=== PATIENT | male | born 1985 | race Hispanic/Latino ===

== ENCOUNTER → 2019-11-26 13:12 | Outpatient (CLI) | payer MEDICARE, OTHER, SELFPAY | PROVIDERS: Family Provider Family Medicine; Visit Provider Physician Assistant | DX: L03.012 Cellulitis of left finger (principal) | CPT/HCPCS: 87070; 87075; 87205 ==

== ENCOUNTER → 2020-03-30 08:57 | Outpatient (CLI) | payer MEDICARE, OTHER, SELFPAY ==
[2020-03-30 09:23] LABS: Bacteria Urine None Seen
[2020-03-30 10:57] LABS: Add Manual Diff / Slide Review NO; Basophils Absolute Auto 200 /uL (0-100); Basophils Percent Auto 2.6 % (0-2); Eosinophils Absolute Auto 200 /uL (0-450); Eosinophils Percent Auto 2.5 % (2-4); Hematocrit 32.1 % (41-53); Lymphocytes Absolute Auto 600 /uL (1100-4500); Lymphocytes Percent Auto 9.6 % (25-40); Mean Corpuscular HGB Conc 34.2 % (30-36); Mean Corpuscular Hemoglobin 32.5 PG (26-34); Monocytes Absolute Auto 700 /uL (0-900); Neutrophils Absolute Auto 4800 /uL (1500-7000); Neutrophils Percent Auto 74.3 % (50-75); Platelet Count 299 X10^3/uL (150-400); Red Blood Cell Count 3.38 X10^6/uL (4.5-5.9); Red Cell Distribution Width 16.7 % (11.6-14.8); White Blood Cell Count 6.4 X10^3/uL (4.5-11.0)
[2020-03-30 11:14] LABS: Appearance Urine UA CLEAR; Bilirubin Urine UA NEGATIVE (NEGATIVE); Color Urine UA YELLOW; Glucose Urine UA NEGATIVE (Negative); Ketones Urine UA NEGATIVE (NEGATIVE); Leukocyte Esterase Urine UA NEGATIVE (NEGATIVE); Nitrite Urine UA NEGATIVE (Negative); Occult Blood Urine UA TRACE-LYSED (Negative); Protein Urine UA TRACE (Negative); Specific Gravity Urine UA >=1.030 (1.000-1.035); Urobilinogen Urine UA 0.2 E.U./dL (0.2)
[2020-03-30 11:16] LABS: Amorphous Sediment Urine 2+; Culture Indicated Urine Specimen Cultured; RBC Urine 1-5/HPF (0-5/HPF); WBC Urine 5-10/HPF (0-5/HPF)
[2020-03-30 11:22] LABS: Alanine Aminotransferase 37 IU/L (<50); Albumin 4.5 g/dL (3.5-5.0); Albumin Globulin Ratio 1.5 (1.0-2.8); Alkaline Phosphatase 118 U/L (38-126); Aspartate Aminotransferase 28 IU/L (17-59); BUN Creatinine Ratio 14.5 (6-22); Bilirubin Total 0.7 mg/dL (0.2-1.3); Blood Urea Nitrogen 31 mg/dL (9-20); Calcium 11.7 mg/dL (8.4-10.2); Carbon Dioxide 25 mmol/L (22-32); Chloride 102 mmol/L (98-107); Estimated Glomerular Filt Rate 35.6 mL/min (>60); Globulin 3.1 g/dL (1.7-4.1); Glucose 113 mg/dL (70-100); HEMOLYSIS < 15 (0-50); Magnesium 1.6 mg/dL (1.6-2.3); Phosphorous 3.3 mg/dL (2.5-4.5); Sodium 135 mmol/L (137-145); Total Protein 7.6 g/dL (6.3-8.2)
[2020-03-30 14:29] LABS: Creatinine Urine Random 120.9 mg/dL; Protein (Total) Urine Random 28 mg/dL (0-12); Protein Creatinine Ratio Urine 0.23 GRAM/24H
[2020-03-31 09:40] LABS: Tacrolimus 9.7 ng/mL (2.0-20.0)
== END ==
PROVIDERS: Referring Provider Internal Medicine; Visit Provider Internal Medicine
DX: Z94.0 Kidney transplant status (principal); Z48.298 Encounter for aftercare following other organ transplant; T86.90 Unspecified complication of unspecified transplanted organ and tissue; E83.40 Disorders of magnesium metabolism, unspecified
CPT/HCPCS: 36415; 80053; 80197; 81001; 82570; 83735; 84100; 84156; 85025; 87086

== ENCOUNTER → 2022-11-07 10:39 | Outpatient (CLI) | payer OTHER, SELFPAY ==
[2022-11-07 11:11] LABS: Add Manual Diff / Slide Review NO; Basophils Absolute Auto 0 /uL (0-100); Basophils Percent Auto 0.6 % (0-2); Eosinophils Absolute Auto 100 /uL (0-450); Hematocrit 47.8 % (41-53); Hemoglobin 16.7 g/dL (13.5-17.5); Lymphocytes Absolute Auto 1500 /uL (1100-4500); Lymphocytes Percent Auto 18.8 % (25-40); Mean Corpuscular HGB Conc 34.8 % (30-36); Mean Corpuscular Hemoglobin 30.5 PG (26-34); Mean Corpuscular Volume 87.6 fL (80-100); Monocytes Absolute Auto 400 /uL (0-900); Monocytes Percent Auto 4.9 % (3-14); Neutrophils Absolute Auto 6100 /uL (1500-7000); Neutrophils Percent Auto 74.7 % (50-75); Platelet Count 273 X10^3/uL (150-400); Red Blood Cell Count 5.46 X10^6/uL (4.5-5.9); Red Cell Distribution Width 12.5 % (11.6-14.8); White Blood Cell Count 8.1 X10^3/uL (4.5-11.0)
[2022-11-07 11:34] LABS: Alanine Aminotransferase 57 IU/L (<50); Albumin 4.5 g/dL (3.5-5.0); Albumin Globulin Ratio 1.5 (1.0-2.8); Alkaline Phosphatase 121 U/L (38-126); Aspartate Aminotransferase 35 IU/L (17-59); BUN Creatinine Ratio 13.8 (6-22); Bilirubin Total 1.4 mg/dL (0.2-1.3); Blood Urea Nitrogen 15 mg/dL (9-20); Calcium 10.7 mg/dL (8.4-10.2); Carbon Dioxide 29 mmol/L (22-32); Chloride 101 mmol/L (98-107); Cholesterol 263 mg/dL (140-199); Estimated Glomerular Filt Rate > 60 mL/min (>60); Globulin 3.1 g/dL (1.7-4.1); Glucose 185 mg/dL (70-100); HDL Cholesterol 38 mg/dL (40-60); HEMOLYSIS < 15 (0-50); Potassium 4.8 mmol/L (3.4-5.1); Sodium 137 mmol/L (137-145); Total Protein 7.6 g/dL (6.3-8.2)
[2022-11-07 11:41] LABS: Triglycerides 665 mg/dL (35-150)
[2022-11-07 12:50] LABS: Creatinine Urine Random 85.4 mg/dL
[2022-11-07 12:55] LABS: Microalbumi Creatinin Ratio Ur 17.5 ug/mg CR (<30); Microalbumin Urine Random 1.5 mg/dL (0-1.6)
== END ==
PROVIDERS: Family Provider Family Medicine; PCP Family Medicine; Referring Provider Family Medicine; Visit Provider Family Medicine
DX: E78.5 Hyperlipidemia, unspecified (principal); D22.9 Melanocytic nevi, unspecified; I10 Essential (primary) hypertension; Z94.0 Kidney transplant status
CPT/HCPCS: 36415; 80053; 80061; 82043; 82570; 85025

== ENCOUNTER → 2023-09-04 09:34 | Outpatient (CLI) | payer OTHER, SELFPAY ==
[2023-09-04 11:22] LABS: Hemoglobin A1C% w Est Avg Glu 13.6 % (4.0-6.0)
[2023-09-04 11:34] LABS: Alanine Aminotransferase 41 IU/L (<50); Albumin 4.5 g/dL (3.5-5.0); Albumin Globulin Ratio 1.7 (1.0-2.8); Alkaline Phosphatase 161 U/L (38-126); Aspartate Aminotransferase 30 IU/L (17-59); BUN Creatinine Ratio 19.2 (6-22); Bilirubin Total 1.4 mg/dL (0.2-1.3); Blood Urea Nitrogen 20 mg/dL (9-20); Calcium 10.4 mg/dL (8.4-10.2); Carbon Dioxide 26 mmol/L (22-32); Chloride 102 mmol/L (98-107); Cholesterol 205 mg/dL (140-199); Estimated Glomerular Filt Rate > 60 mL/min (>60); Globulin 2.6 g/dL (1.7-4.1); Glucose 444 mg/dL (70-100); HDL Cholesterol 29 mg/dL (40-60); Potassium 4.7 mmol/L (3.4-5.1); Sodium 135 mmol/L (137-145); Total Protein 7.1 g/dL (6.3-8.2); Uric Acid 7.6 mg/dL (3.5-8.5)
[2023-09-04 11:42] LABS: HEMOLYSIS 16 (0-50)
[2023-09-04 11:43] LABS: Triglycerides 1362 mg/dL (35-150)
== END ==
PROVIDERS: Family Provider Family Medicine; PCP Family Medicine; Referring Provider Family Medicine; Visit Provider Family Medicine
DX: M10.9 Gout, unspecified (principal); E78.5 Hyperlipidemia, unspecified; I10 Essential (primary) hypertension; E83.52 Hypercalcemia; E11.9 Type 2 diabetes mellitus without complications
CPT/HCPCS: 36415; 80053; 80061; 83036; 84550

== ENCOUNTER → 2023-09-18 09:29 | Outpatient (CLI) | payer OTHER, SELFPAY ==
[2023-09-18 10:22] LABS: Add Manual Diff / Slide Review NO; Basophils Absolute Auto 100 /uL (0-100); Basophils Percent Auto 1.2 % (0-2); Eosinophils Absolute Auto 100 /uL (0-450); Eosinophils Percent Auto 2.3 % (2-4); Hematocrit 46.1 % (41-53); Hemoglobin 15.8 g/dL (13.5-17.5); Lymphocytes Absolute Auto 1500 /uL (1100-4500); Lymphocytes Percent Auto 28.3 % (25-40); Mean Corpuscular HGB Conc 34.3 % (30-36); Mean Corpuscular Hemoglobin 30.2 PG (26-34); Mean Corpuscular Volume 88.2 fL (80-100); Monocytes Absolute Auto 500 /uL (0-900); Monocytes Percent Auto 8.9 % (3-14); Neutrophils Absolute Auto 3200 /uL (1500-7000); Neutrophils Percent Auto 59.3 % (50-75); Platelet Count 240 X10^3/uL (150-400); Red Blood Cell Count 5.23 X10^6/uL (4.5-5.9); Red Cell Distribution Width 13.2 % (11.6-14.8); White Blood Cell Count 5.4 X10^3/uL (4.5-11.0)
[2023-09-18 10:25] LABS: Appearance Urine UA CLEAR; Bilirubin Urine UA NEGATIVE (NEGATIVE); Color Urine UA YELLOW; Glucose Urine UA 3+ g/dL (Negative); Ketones Urine UA TRACE (NEGATIVE); Leukocyte Esterase Urine UA NEGATIVE (NEGATIVE); Nitrite Urine UA NEGATIVE (Negative); Occult Blood Urine UA NEGATIVE (Negative); Protein Urine UA NEGATIVE (Negative); Urobilinogen Urine UA 0.2 E.U./dL (0.2); pH Urine UA 5.5 (4.5-8.0)
[2023-09-18 10:31] LABS: Urine Volume 10mL (spun)
[2023-09-18 10:32] LABS: Bacteria Urine None Seen; Culture Indicated Urine Cult Not Indicated; RBC Urine None Seen (0-5/HPF); Squamous Epithelial Cell Urine None Seen (0-5/HPF); WBC Urine None Seen (0-5/HPF)
[2023-09-18 14:49] LABS: Hemoglobin A1C% w Est Avg Glu 12.3 % (4.0-6.0)
[2023-09-18 15:51] LABS: Alanine Aminotransferase 40 IU/L (<50); Albumin 4.4 g/dL (3.5-5.0); Albumin Globulin Ratio 1.6 (1.0-2.8); Alkaline Phosphatase 103 U/L (38-126); Aspartate Aminotransferase 31 IU/L (17-59); BUN Creatinine Ratio 18.8 (6-22); Bilirubin Total 1.6 mg/dL (0.2-1.3); Blood Urea Nitrogen 21 mg/dL (9-20); Calcium 10.2 mg/dL (8.4-10.2); Carbon Dioxide 28 mmol/L (22-32); Chloride 103 mmol/L (98-107); Estimated Glomerular Filt Rate > 60 mL/min (>60); Globulin 2.7 g/dL (1.7-4.1); Glucose 233 mg/dL (70-100); HEMOLYSIS < 15 (0-50); Sodium 137 mmol/L (137-145); Total Protein 7.1 g/dL (6.3-8.2)
[2023-09-18 15:51] LABS: Magnesium 2.1 mg/dL (1.6-2.3); Phosphorous 3.2 mg/dL (2.5-4.5)
[2023-09-18 16:05] LABS: Potassium 5.4 mmol/L (3.4-5.1)
[2023-09-18 16:15] LABS: TSH w/ Reflex to FT4 0.37 uIU/mL (0.47-4.68)
[2023-09-18 16:36] LABS: Creatinine Urine Random 52.11 mg/dL; Protein (Total) Urine Random 13 mg/dL (0-12); Protein Creatinine Ratio Urine 0.24 GRAM/24H
[2023-09-18 17:50] LABS: Free T4, Direct Thyroxine 1.03 ng/dL (0.78-2.19)
[2023-09-19 11:43] LABS: Tacrolimus 3.8 ng/mL (2.0-20.0)
[2023-09-20 16:44] LABS: CMV DNA, Quant Real Time PCR Negative (Negative)
[2023-09-24 12:36] LABS: Epstein-Barr DNA Quant, PCR Negative (Negative)
== END ==
PROVIDERS: Internal Medicine; Family Provider Family Medicine; PCP Family Medicine; Referring Provider Family Medicine; Visit Provider Family Medicine
DX: E11.9 Type 2 diabetes mellitus without complications (principal)
CPT/HCPCS: 36415; 80053; 80197; 81001; 82570; 83036; 83735; 84100; 84156; 84439; 84443; 85025; 87497; 87798

== ENCOUNTER → 2023-10-16 11:00 | Outpatient (CLI) | payer OTHER, SELFPAY ==
--- NOTE | 2023-10-29 11:26 | DIAB.INIT ---
Initial Diabetes Education Assessment Name: Tyler Lofton Date: 10/16/23 Time: 1105a-12p Dx: Type II Diabetes Provider: Marvin Tyler presents for initial Dm visit. Recent DM diagnosis with significant immediate FH of T2 and T1 DM. Also, PMH of kidney transplant in 2019 with chronic prednisone tx. States he has had prediabetes for some time, but just recently diagnosed with Dm. Interested in CGM. Has private insurance. If not covered can try FSL coupon. Reports prior to diagnosis had symptoms of fatigue, vision changes. Today we placed a sample CGM for him to try. Diet Recall: 10a: apple and beef jerky OR eggs, villanueva +/- pancake 4-8p: burger, wings, veggies OR steak, wings, veggies (often eating out) OR homemade porridge with chicken or pina stew water 1.5 gallon per day, coffee with splash sweet creamer Travelling for work more. Irregular work schedule impacts meal timing. No pizza due to GI upset/heartburn. Avoiding pasta, rice, potatoes, and bread at this time. Anthropometrics: Ht: 66 Wt: 201# Physical Activity: More recently started daily body resistance exercises. Enjoys walks and cycling. Self-Monitoring Blood Glucose: None recently, report infrequent. Diabetes Medications: 25mg Jardiance 1000mg Metformin BID 2.5 glipizide 15mg pioglitizone Pertinent Labs: HgA1c: 13.3% 09/04/23 12.3% 09/18/23 Past Medical History: (Last Reviewed 09/18/23 @ 11:46 by Jean Marvin DO) Anemia [id number] Atypical nevi Cystinuria Gout History of hemodialysis History of kidney disease Hypercalcemia Hyperlipidemia Hypertension Kidney failure [id number] Kidney stones [id number] Type 2 diabetes mellitus Intervention: This participant was very receptive. Provided appropriate educational handouts. Discussed the following topics: Completed intake assessment. Discussed barriers to care. Pathophysiology of type 2 diabetes HgA1c, its correlation to blood glucose numbers, and rationale for goal Importance of self-monitoring, how often, and when to check. Suggested checking at different times to evaluate meals. Reviewed role of CGM and potential coupons to make affordable. Impact of eating out on overall health and BG Reviewed CGM use and equipment Discussed when to check blood sugars using finger stick Reviewed high and low blood sugar signs/symptoms and treatment options Provided education for self-administration of CGM placement Educated patient on alarm settings Discussed when to replace equipment and disposal Created SMART goals for patient self-care and success. Goals: Wear FSL3 x 14 days (provided coupon info) Message RD about if you want to move forward with rx Follow-up: KRISTINA VALERA follow-up in 2-3 weeks Daphne Huang RDN, SOTO Certified Diabetes Care and Drawing Checker P: [phone] Thank you for this referral
== END ==
PROVIDERS: Family Provider Family Medicine; PCP Family Medicine; Referring Provider Family Medicine
DX: E11.9 Type 2 diabetes mellitus without complications (principal); Z79.84 Long term (current) use of oral hypoglycemic drugs; Z71.3 Dietary counseling and surveillance
CPT/HCPCS: G0108

== ENCOUNTER → 2023-11-13 10:23 | Outpatient (CLI) | payer OTHER, SELFPAY ==
[2023-11-13 11:26] LABS: Creatinine Urine Random 75.62 mg/dL
[2023-11-13 11:28] LABS: Hemoglobin A1C% w Est Avg Glu 7.4 % (4.0-6.0)
[2023-11-13 11:31] LABS: Microalbumin Urine Random 2.7 mg/dL (0-1.6)
[2023-11-13 21:00] LABS: Alanine Aminotransferase 36 IU/L (<50); Albumin 4.8 g/dL (3.5-5.0); Albumin Globulin Ratio 1.5 (1.0-2.8); Alkaline Phosphatase 74 U/L (38-126); Aspartate Aminotransferase 32 IU/L (17-59); BUN Creatinine Ratio 16.7 (6-22); Bilirubin Total 1.3 mg/dL (0.2-1.3); Blood Urea Nitrogen 21 mg/dL (9-20); Calcium 11.2 mg/dL (8.4-10.2); Carbon Dioxide 25 mmol/L (22-32); Chloride 107 mmol/L (98-107); Estimated Glomerular Filt Rate > 60 mL/min (>60); Globulin 3.3 g/dL (1.7-4.1); Glucose 106 mg/dL (70-100); HEMOLYSIS 16 (0-50); Sodium 140 mmol/L (137-145); Total Protein 8.1 g/dL (6.3-8.2)
[2023-11-13 21:03] LABS: Potassium 5.4 mmol/L (3.4-5.1)
== END ==
PROVIDERS: Family Provider Family Medicine; PCP Family Medicine; Referring Provider Family Medicine; Visit Provider Family Medicine
DX: E11.9 Type 2 diabetes mellitus without complications (principal); I10 Essential (primary) hypertension; E83.52 Hypercalcemia; M10.9 Gout, unspecified
CPT/HCPCS: 36415; 80053; 82043; 82570; 83036

== ENCOUNTER → 2024-01-08 09:44 | Outpatient (CLI) | payer OTHER, SELFPAY ==
[2024-01-08 10:37] LABS: Alanine Aminotransferase 30 IU/L (<50); Albumin 4.6 g/dL (3.5-5.0); Albumin Globulin Ratio 1.6 (1.0-2.8); Alkaline Phosphatase 69 U/L (38-126); Aspartate Aminotransferase 34 IU/L (17-59); BUN Creatinine Ratio 18.3 (6-22); Bilirubin Total 1.8 mg/dL (0.2-1.3); Blood Urea Nitrogen 23 mg/dL (9-20); Calcium 11.2 mg/dL (8.4-10.2); Carbon Dioxide 26 mmol/L (22-32); Chloride 102 mmol/L (98-107); Cholesterol 175 mg/dL (140-199); Estimated Glomerular Filt Rate > 60 mL/min (>60); Globulin 2.9 g/dL (1.7-4.1); Glucose 114 mg/dL (70-100); HDL Cholesterol 44 mg/dL (40-60); HEMOLYSIS 17 (0-50); LDL Cholesterol Calculated 86 mg/dL (<100); Potassium 5.1 mmol/L (3.4-5.1); Sodium 136 mmol/L (137-145); Total Protein 7.5 g/dL (6.3-8.2); Triglycerides 226 mg/dL (35-150)
[2024-01-08 11:03] LABS: Hemoglobin A1C% w Est Avg Glu 5.9 % (4.0-6.0)
[2024-01-10 06:12] LABS: Calcium 10.9 mg/dL (8.7-10.2); Parathyroid Hormone, Intact 46 pg/mL (15-65)
== END ==
PROVIDERS: Family Provider Family Medicine; PCP Family Medicine; Referring Provider Family Medicine; Visit Provider Family Medicine
DX: E11.22 Type 2 diabetes mellitus with diabetic chronic kidney disease (principal); I10 Essential (primary) hypertension; E78.00 Pure hypercholesterolemia, unspecified; E83.52 Hypercalcemia
CPT/HCPCS: 36415; 80053; 80061; 82310; 83036; 83970

== ENCOUNTER → 2024-04-09 09:00 | Outpatient (CLI) | payer OTHER, SELFPAY ==
[2024-04-09 10:27] LABS: Alanine Aminotransferase 29 IU/L (<50); Albumin 4.3 g/dL (3.5-5.0); Albumin Globulin Ratio 1.4 (1.0-2.8); Alkaline Phosphatase 72 U/L (38-126); Aspartate Aminotransferase 28 IU/L (17-59); Blood Urea Nitrogen 25 mg/dL (9-20); Calcium 10.6 mg/dL (8.4-10.2); Carbon Dioxide 26 mmol/L (22-32); Chloride 103 mmol/L (98-107); Cholesterol 256 mg/dL (140-199); Estimated Glomerular Filt Rate > 60 mL/min (>60); Glucose 138 mg/dL (70-100); HDL Cholesterol 45 mg/dL (40-60); HEMOLYSIS < 15 (0-50); LDL Cholesterol Calculated 162 mg/dL (<100); Potassium 4.9 mmol/L (3.4-5.1); Sodium 133 mmol/L (137-145); Total Protein 7.3 g/dL (6.3-8.2); Triglycerides 247 mg/dL (35-150); Uric Acid 8.1 mg/dL (3.5-8.5)
[2024-04-09 10:30] LABS: Hemoglobin A1C% w Est Avg Glu 5.7 % (4.0-6.0)
[2024-04-09 11:41] LABS: Creatinine Urine Random 79.63 mg/dL
[2024-04-09 11:49] LABS: Microalbumin Urine Random < 0.6 mg/dL (0-1.6)
== END ==
PROVIDERS: Family Provider Family Medicine; PCP Family Medicine; Referring Provider Family Medicine; Visit Provider Family Medicine
DX: E11.9 Type 2 diabetes mellitus without complications (principal); M10.9 Gout, unspecified; I10 Essential (primary) hypertension; E83.52 Hypercalcemia; E78.5 Hyperlipidemia, unspecified
CPT/HCPCS: 36415; 80053; 80061; 82043; 82570; 83036; 84550

== ENCOUNTER → 2024-07-22 08:08 | Outpatient (CLI) | payer OTHER, SELFPAY ==
[2024-07-22 08:44] LABS: Hemoglobin A1C% w Est Avg Glu 5.5 % (4.0-6.0)
[2024-07-22 08:57] LABS: Alanine Aminotransferase 27 IU/L (<50); Albumin 4.8 g/dL (3.5-5.0); Albumin Globulin Ratio 1.7 (1.0-2.8); Alkaline Phosphatase 84 U/L (38-126); Aspartate Aminotransferase 29 IU/L (17-59); BUN Creatinine Ratio 21.5 (6-22); Bilirubin Total 1.3 mg/dL (0.2-1.3); Blood Urea Nitrogen 34 mg/dL (9-20); Calcium 10.8 mg/dL (8.4-10.2); Carbon Dioxide 23 mmol/L (22-32); Chloride 100 mmol/L (98-107); Cholesterol 297 mg/dL (140-199); Estimated Glomerular Filt Rate 57 mL/min (>60); Globulin 2.9 g/dL (1.7-4.1); Glucose 146 mg/dL (70-100); HDL Cholesterol 35 mg/dL (40-60); HEMOLYSIS < 15 (0-50); Sodium 133 mmol/L (137-145); Total Protein 7.7 g/dL (6.3-8.2); Uric Acid 8.5 mg/dL (3.5-8.5)
[2024-07-22 08:58] LABS: Potassium 5.5 mmol/L (3.4-5.1)
[2024-07-22 09:04] LABS: Triglycerides 791 mg/dL (35-150)
== END ==
PROVIDERS: Family Provider Family Medicine; PCP Family Medicine; Referring Provider Family Medicine; Visit Provider Family Medicine
DX: E11.9 Type 2 diabetes mellitus without complications (principal); M10.9 Gout, unspecified; I10 Essential (primary) hypertension; E78.5 Hyperlipidemia, unspecified
CPT/HCPCS: 36415; 80053; 80061; 83036; 84550

== ENCOUNTER 2024-12-09 09:09 | Inpatient (IN) | payer MEDICARE, OTHER, SELFPAY ==
[2024-12-09] VITALS (33 sets, daily range): BP systolic 93–131; BP diastolic 54–71; PULSE 50–86; RESP 12–29; TEMP 35.4–36.6; O2SAT 94–100; BMI 33.0; BMI 33.7
--- NOTE | 2024-12-09 09:31 | DI.RAD.S_ITS ---
PROCEDURE: XR CHEST 1V INDICATIONS: Chest Pain TECHNIQUE: One view of the chest was acquired. COMPARISON: None. FINDINGS: Surgical changes and devices: None. Lungs and pleura: Lungs are clear. No pleural effusions or pneumothorax. Mediastinum: Mediastinal contours appear normal. Heart size is normal. Bones and chest wall: No suspicious bony lesions. Overlying soft tissues appear unremarkable. IMPRESSION: No acute cardiopulmonary abnormality is seen. Dictated by: Antonino Delgado M.D. on 12/09/2024 at 9:53 Approved by: Antonino Delgado M.D. on 12/09/2024 at 9:53
--- NOTE | 2024-12-09 09:31 | EKG_ITS ---
[address] [address] Test Date: 2024-12-09 Pat Name: Tyler Lofton Department: Room: Gender: Male Harp Regulator: MARLEN : 1985 Requested By: Order Number: [id number] Reading MD: Dwight Swain Measurements Intervals Malin Rate: 77 P: 31 [place]: 202 QRS: 38 QRSD: 108 T: 41 QT: 408 QTc: 461 Interpretive Statements Normal sinus rhythm Electronically Signed On 12-10-2024 9:45:25 PDT by Dwight Swain
[2024-12-09 09:46] LABS: Appearance Urine UA CLEAR; Bilirubin Urine UA NEGATIVE (NEGATIVE); Color Urine UA YELLOW; Glucose Urine UA 3+ g/dL (Negative); Ketones Urine UA NEGATIVE (NEGATIVE); Leukocyte Esterase Urine UA NEGATIVE (NEGATIVE); Nitrite Urine UA NEGATIVE (Negative); Occult Blood Urine UA 3+ (Negative); Protein Urine UA 2+ (Negative); Specific Gravity Urine UA <=1.005 (1.000-1.035); Urobilinogen Urine UA 0.2 E.U./dL (0.2); pH Urine UA 5.5 (4.5-8.0)
[2024-12-09 09:50] LABS: Culture Indicated Urine Cult Not Indicated
[2024-12-09 09:58] LABS: Add Manual Diff / Slide Review NO; Hematocrit 44.8 % (41-53); Hemoglobin 15.6 g/dL (13.5-17.5); Lymphocytes Absolute Auto 1000 /uL (1100-4500); Mean Corpuscular HGB Conc 34.9 % (30-36); Mean Corpuscular Hemoglobin 29.9 PG (26-34); Mean Corpuscular Volume 85.7 fL (80-100); Platelet Count 197 X10^3/uL (150-400)
--- NOTE | 2024-12-09 09:58 | ED_ITS ---
HPI - Weakness General Chief complaint: Weakness Stated complaint: Nauseous, Kidney Issues after Transplant Time Seen by Provider: 12/09/24 09:21 Source: patient Mode of arrival: Ambulatory Limitations: language barrier History of Present Illness HPI Narrative: 39-year-old renal transplant patient with a history of hypertension type 2 diabetes gout dyslipidemia presented 2 weeks of general malaise weakness thought he had COVID with a negative home COVID test then started to develop symptoms of hematuria dysuria abdominal cramping seen at urgent care started on Bactrim but continues to be symptomatic at this time. Patient denies fever chills body aches but it is nauseous but no vomiting diarrhea, back pain penile discharge or testicular pain. Other than what is stated 14 point review of system is negative. Related Data Home Medications ?Medication ?Instructions ?Recorded ?Confirmed magnesium supplement PO 07/01/22 07/22/24 multivitamin 1 tab PO DAILY 07/01/2207/03 mycophenolate sodium 360 mg tab PO 07/01/22 07/22/24 tablet,delayed release prednisone 5 mg tablet 5 mg PO DAILY 07/01/2207/22 tacrolimus 0.5 mg capsule, 0.5 mg PO 07/01/22 07/22/24 immediate-release tacrolimus 1 mg capsule, 1 mg PO BID 01/08/24 5 immediate-release Previous Rx's ?Medication ?Instructions ?Recorded lancets 33 gauge #100 ea 09/18/23 blood-glucose sensor (FreeStyle #2 ea 11/02/23 Yuniel 3 Sensor device) flash glucose scanning reader #1 ea 11/02/23 (FreeStyle Yuniel 2 [place]) atorvastatin 10 mg tablet 10 mg PO DAILY #90 tabs 07/03 05/28 empagliflozin 10 mg tablet 10 mg PO DAILY #90 tabs lisinopril 10 mg tablet 10 mg PO DAILY #90 tabs 07/03 05/28 pioglitazone 15 mg tablet 15 mg PO DAILY #90 tabs 09/02 11/25 metformin 500 mg tablet 1,000 mg (2 x 500 mg) PO BID #180 11/21/24 tabs Allergies Allergy/AdvReac Type Severity Reaction Status Date / Time No Known Drug Allergies Allergy Verified 12/09/24 09:24 Review of Systems Review of Systems ROS Unobtainable: All systems reviewed & are unremarkable except as noted in HPI and below Patient History Medical History Type 2 diabetes mellitus Hypercalcemia Anemia Kidney stones Kidney failure History of kidney disease History of hemodialysis Atypical nevi Hyperlipidemia Hypertension Gout Cystinuria Surgical History Anesthesia H/O nephrolithotomy with removal of calculi Renal transplant recipient (~03/10/20) Family History Father Diabetes mellitus Hyperlipidemia Mental health problem Mother Diabetes mellitus Hypertension Mental health problem Brother Diabetes mellitus Hypertension Hyperlipidemia Mental health problem Sister Diabetes mellitus Hyperlipidemia Mental health problem Sister Hypertension Mental health problem Social History (System 11/19/22 @ 11:08 by Tati Brennan) Smoking Status: Never smoker Smoking Status: Never smoker Exam Narrative Exam Narrative: GENERAL: [39] year old patient appears stated age. Well-developed patient, in mild distress. HEAD: Atraumatic. Normocephalic. EYES: Pupils equal round and reactive. Extraocular motions intact. No scleral icterus. No injection or drainage. ENT: Nose without bleeding, purulent drainage. Throat without erythema, tonsillar hypertrophy or exudate. Airway patent. NECK: Trachea midline. Non tender CARDIOVASCULAR: Regular rate and rhythm without murmurs, gallops, or rubs. RESPIRATORY: Clear to auscultation. Breath sounds equal bilaterally. No wheezes, rales, or rhonchi. GASTROINTESTINAL: Abdomen soft, non-tender, nondistended. EXTREMITIES: No edema or joint tenderness. BACK: Nontender without deformity or crepitance. No flank tenderness. NEURO: AOx3. SKIN: No rash or erythema of visible areas Initial Vital Signs Initial Vital Signs: Vital Signs Temperature 97.8 F 12/09/24 09:24 Pulse Rate 86 12/09/24 09:24 Respiratory Rate 16 12/09/24 09:24 Blood Pressure 101/61 12/09/24 09:24 Pulse Oximetry 98 12/09/24 09:24 Oxygen Delivery Method Room Air 12/09/24 09:24 Course Orders Ordered: ED Orders 12/09/24 08:25 Urinalysis and Microscopic Stat 12/09/24 09:31 XR chest 1V Stat EKG-12 Lead Stat 12/09/24 09:45 Complete Blood Count AUTO DIFF Stat Comprehensive Metabolic Panel Stat Covid-19 + FLU A/B + RSV - PCR Stat Lactate (Lactic Acid) Stat Lipase Stat Magnesium Stat NT-proBNP (BNP-Adult 18+) Stat PTT Partial Thromboplastin Min Stat Prothrombin Time INR Stat Troponin & CK Cardiac Panel Stat 12/09/24 10:10 Blood Culture Stat Lactated Ringer's (Lactated Ringers) 1,000 mls @ 1,000 mls/hr IV BOLUS ONE Stop: 12/09/24 11:03 Last Admin: 12/09/24 10:12 Dose: 1,000 mls/hr Documented By: GUILLERMO Discontinued Medications Ondansetron HCl (Ondansetron 4 Mg/2 Ml Inj) 4 mg IV NOW ONE Stop: 12/09/24 10:05 Last Admin: 12/09/24 10:13 Dose: 4 mg Documented By: GUILLERMO Vital Signs Vital signs: Vital Signs - 8 hr 12/09/24 09:24 Temperature 97.8 F Pulse Rate 86 Respiratory Rate 16 Blood Pressure 101/61 Pulse Oximetry 98 Oxygen Delivery Method Room Air MDM - Weakness Lab Data 12/09/24 09:45 12/09/24 09:45 Labs: Lab Results 12/09/24 12/09/24 Range/Units 08:25 09:45 WBC 4.9 (4.5-11.0) X10^3/uL RBC 5.22 (4.5-5.9) X10^6/uL Hgb 15.6 (13.5-17.5) g/dL Hct 44.8 (41-53) % MCV 85.7 (80-100) fL MCH 29.9 (26-34) PG MCHC 34.9 (30-36) % RDW 13.0 (11.6-14.8) % Plt Count 197 (150-400) X10^3/uL Neut % (Auto) 67.8 (50-75) % Lymph % (Auto) 20.2 L (25-40) % Josephine % (Auto) 11.5 (3-14) % Eos % (Auto) 0.1 L (2-4) % Baso % (Auto) 0.4 (0-2) % Neut # (Auto) 3300 (5195-8201) /uL Lymph # (Auto) 1000 L (1716-6223) /uL Josephine # (Auto) 600 (0-900) /uL Eos # (Auto) 0 (0-450) /uL Baso # (Auto) 0 (0-100) /uL PT 11.3 (9.4-12.5) SECONDS INR 1.0 (0.9-1.3) APTT 31 (25.1-36.5) SECONDS Sodium 126 L (137-145) mmol/L Potassium 4.1 (3.4-5.1) mmol/L Chloride 93 L (98-107) mmol/L Carbon Dioxide 16 L (22-32) mmol/L BUN 49 H (9-20) mg/dL Creatinine 3.77 H (0.66-1.25) mg/dL Estimated GFR 20 L (>60) mL/min BUN/Creatinine Ratio 13.0 (6-22) Glucose 192 H (70-99) mg/dL Lactate 2.0 (0.7-2.1) mmol/L Calcium 9.3 (8.4-10.2) mg/dL Magnesium 2.6 H (1.6-2.3) mg/dL Total Bilirubin 0.9 (0.2-1.3) mg/dL AST 34 (17-59) IU/L ALT 36 (<50) IU/L Alkaline Phosphatase 81 (38-126) U/L Total Creatine Kinase 101 (55-170) U/L Troponin I < 0.012 (0.01-0.034) ng/mL NT-Pro-B Natriuret Pep < 20 (<125) pg/mL Total Protein 8.1 (6.3-8.2) g/dL Albumin 4.7 (3.5-5.0) g/dL Globulin 3.4 (1.7-4.1) g/dL Albumin/Globulin Ratio 1.4 (1.0-2.8) Lipase 69 (23-300) U/L Urine Color Yellow Urine Appearance Clear Urine pH 5.5 (4.5-8.0) Ur Specific [place] <=1.005 (1.000-1.035) Urine Protein 2+ H (Negative) Urine Glucose (UA) 3+ H (Negative) g/dL Urine Ketones Negative (NEGATIVE) Urine Occult Blood 3+ H (Negative) Urine Nitrate Negative (Negative) Urine Bilirubin Negative (NEGATIVE) Urine Urobilinogen 0.2 (0.2) E.U./dL Ur Leukocyte Esterase Negative (NEGATIVE) Urine RBC 10-30/hpf H (0-5/HPF) Urine WBC 0-1/hpf (0-5/HPF) Ur Squamous Epith Cells None seen (0-5/HPF) Urine Bacteria None seen (None) Ur Culture Indicated? Cult not indicated Vol Urine Centrifuged 10ml (spun) SARS-CoV-2 (PCR) Negative (Negative) Influenza A (RT-PCR) Flu a negative (NEGATIVE) Influenza B (RT-PCR) Flu b negative (NEGATIVE) RSV (PCR) Negative (Negative) Imaging Data Chest x-ray: Radiologist Impression: [place] [address] XRay Report Signed Patient: Tyler Lofton MR#: [id number] : 1985 Acct:[id number] Age/Sex: 39 / M Date of Service: 12/09/24 Loc: ED Accession Number: [id number] Procedure: XR chest 1V Ordering Provider: Aidan Shah D.O. PROCEDURE: XR CHEST 1V INDICATIONS: Chest Pain TECHNIQUE: One view of the chest was acquired. COMPARISON: None. FINDINGS: Surgical changes and devices: None. Lungs and pleura: Lungs are clear. No pleural effusions or pneumothorax. Mediastinum: Mediastinal contours appear normal. Heart size is normal. Bones and chest wall: No suspicious bony lesions. Overlying soft tissues appear unremarkable. IMPRESSION: No acute cardiopulmonary abnormality is seen. CT scan - abdomen/pelvis: Radiologist Impression: [place] [address] CT Scan Report Signed Patient: Tyler Lofton MR#: [id number] : 1985 Acct:[id number] Age/Sex: 39 / M Date of Service: 12/09/24 Loc: ED Accession Number: [id number] Procedure: CT kidney ureter bladder (KUB) Ordering Provider: Aidan Shah D.O. PROCEDURE: CT KIDNEY URETER BLADDER (KUB) INDICATIONS: kidney transplant TECHNIQUE: CT of the abdomen and pelvis was obtained without intravenous contrast. Coronal and sagittal reformats were performed. For radiation dose reduction, the following was used: automated exposure control, adjustment of mA and/or kV according to patient size. COMPARISON: None. FINDINGS: Image quality: Diagnostic. Lower Chest: No significant findings. ABDOMEN: Liver: No contour-deforming mass. Gallbladder: No radiopaque gallstones or wall thickening. Biliary ducts: No biliary dilation. Pancreas: No ductal dilation. Spleen: Size is within normal limits. Adrenal Glands: No adrenal nodules. Kidneys and Ureters: [place] kidneys are atrophic without hydronephrosis. Right lower quadrant kidney transplant demonstrates renal edema with moderate hydronephrosis, urothelial wall thickening. Stomach and Bowel: Normal colonic caliber, without significant wall thickening. Normal appendix. Peritoneum: No abnormal intraperitoneal fluid. No free air. Ventral Wall: No significant hernia. Abdominal Nodes: No retroperitoneal or mesenteric adenopathy by size criteria. Vessels: Aorta and inferior vena cava are normal in size. PELVIS: Pelvic Organs: Unremarkable. Bladder: Bladder wall thickening and perivesicular fat stranding. Pelvic Nodes: No enlarged lymph nodes. Miscellaneous: No inguinal hernias are seen. Bones: No aggressive osseous abnormality. IMPRESSION: Suspected ascending urinary tract infection, with bladder wall thickening, perivesicular fat stranding, right lower abdominal renal transplant edema and right-sided urothelial wall thickening. Pyelonephritis not excluded. MDM Narrative Medical decision making narrative: Vital signs, nurse triage note, medication list, previous ER visits, and all imaging studies reviewed. Patient given fluids, Rocephin 2g IV, along with blood cultures. CT abdomen and pelvis shows suspected ascending UTI with bladder wall thickening perivascular fat stranding right lower abdominal renal transplant edema right-sided urolithiasis wall thickening pyelonephritis not excluded. Patient given LR 2 L bolus for which patient has responded. BUN 44 creatinine 3.08 from 49 and 3.77. Case discussed with Dr. Swain who has graciously accepted the patient for inpatient admission. Discharge Plan Departure Patient Disposition: Admitted As Inpatient Clinical Impression: Acute pyelonephritis, YOHAN (acute kidney injury)
[2024-12-09 10:09] LABS: INR 1.0 (0.9-1.3); Prothrombin Time 11.3 SECONDS (9.4-12.5)
[2024-12-09 10:11] LABS: PTT Partial Thromboplastin Tim 31 SECONDS (25.1-36.5)
[2024-12-09] MEDS: LACTATED RINGERS 1,000 ML 1000 ML IV ×3 (10:12→16:51)
[2024-12-09] MEDS: ONDANSETRON 4 MG/2 ML INJ IV (10:13)
[2024-12-09 10:14] LABS: Alanine Aminotransferase 36 IU/L (<50); Albumin 4.7 g/dL (3.5-5.0); Albumin Globulin Ratio 1.4 (1.0-2.8); Alkaline Phosphatase 81 U/L (38-126); Blood Urea Nitrogen 49 mg/dL (9-20); Calcium 9.3 mg/dL (8.4-10.2); Carbon Dioxide 16 mmol/L (22-32); Chloride 93 mmol/L (98-107); Creatine Kinase 101 U/L (55-170); Estimated Glomerular Filt Rate 20 mL/min (>60); Globulin 3.4 g/dL (1.7-4.1); Glucose 192 mg/dL (70-99); HEMOLYSIS < 15 (0-50); Lipase 69 U/L (23-300); Magnesium 2.6 mg/dL (1.6-2.3); Potassium 4.1 mmol/L (3.4-5.1); Sodium 126 mmol/L (137-145); Total Protein 8.1 g/dL (6.3-8.2)
[2024-12-09 10:15] LABS: Lactate (Lactic Acid) 2.0 mmol/L (0.7-2.1)
[2024-12-09 10:26] LABS: NT-proBNP (BNP-Adult 18+) < 20 pg/mL (<125); Troponin I < 0.012 ng/mL (0.01-0.034)
[2024-12-09 10:33] LABS: Influenza A - CEPHEID Flu A NEGATIVE (NEGATIVE); Influenza B - CEPHEID Flu B NEGATIVE (NEGATIVE)
[2024-12-09 10:34] LABS: COVID-19 CEPHEID 4-PLEX PCR Negative (Negative)
--- NOTE | 2024-12-09 10:49 | DI.CT.S_ITS ---
PROCEDURE: CT KIDNEY URETER BLADDER (KUB) INDICATIONS: kidney transplant TECHNIQUE: CT of the abdomen and pelvis was obtained without intravenous contrast. Coronal and sagittal reformats were performed. For radiation dose reduction, the following was used: automated exposure control, adjustment of mA and/or kV according to patient size. COMPARISON: None. FINDINGS: Image quality: Diagnostic. Lower Chest: No significant findings. ABDOMEN: Liver: No contour-deforming mass. Gallbladder: No radiopaque gallstones or wall thickening. Biliary ducts: No biliary dilation. Pancreas: No ductal dilation. Spleen: Size is within normal limits. Adrenal Glands: No adrenal nodules. Kidneys and Ureters: [place] kidneys are atrophic without hydronephrosis. Right lower quadrant kidney transplant demonstrates renal edema with moderate hydronephrosis, urothelial wall thickening. Stomach and Bowel: Normal colonic caliber, without significant wall thickening. Normal appendix. Peritoneum: No abnormal intraperitoneal fluid. No free air. Ventral Wall: No significant hernia. Abdominal Nodes: No retroperitoneal or mesenteric adenopathy by size criteria. Vessels: Aorta and inferior vena cava are normal in size. PELVIS: Pelvic Organs: Unremarkable. Bladder: Bladder wall thickening and perivesicular fat stranding. Pelvic Nodes: No enlarged lymph nodes. Miscellaneous: No inguinal hernias are seen. Bones: No aggressive osseous abnormality. IMPRESSION: Suspected ascending urinary tract infection, with bladder wall thickening, perivesicular fat stranding, right lower abdominal renal transplant edema and right-sided urothelial wall thickening. Pyelonephritis not excluded. Dictated by: Antonino Delgado M.D. on 12/09/2024 at 11:11 Approved by: Antonino Delgado M.D. on 12/09/2024 at 11:14
[2024-12-09] MEDS: cefTRIAXone 2,000 MG in SODIUM CHLORIDE 0.9% 100 ML 200 MG IV (11:52)
[2024-12-09] MEDS: MORPHINE 4 MG/ML INJ IV (13:09)
--- NOTE | 2024-12-09 14:43 | PC.NURSE ---
PT REPORTS URINARY SYMPTOMS X1 WEEK. PT STATES HE TRIED TO SELF MEDICATE AT HOME WITH CRANBERRY EXTRACT AND DRINKING PLENTY OF FLUIDS. PT STATES HE WAS AROUND HIS NEICE WHO HAD A COLD. PT REPORTS HOME COVID TEST WAS NEGATIVE. PT REPORTS FEELING VERY FATIGUED. PT REPORTS HE IS STILL URINATING AND PUTTING OUT ADQUETE OUTPUT.
[2024-12-09 14:51] LABS: Blood Urea Nitrogen 44 mg/dL (9-20); Calcium 8.8 mg/dL (8.4-10.2); Carbon Dioxide 22 mmol/L (22-32); Chloride 96 mmol/L (98-107); Estimated Glomerular Filt Rate 26 mL/min (>60); Glucose 103 mg/dL (70-99); HEMOLYSIS < 15 (0-50); Potassium 4.2 mmol/L (3.4-5.1); Sodium 128 mmol/L (137-145)
[2024-12-09] MEDS: HYDROMORPHONE 1 MG INJ IV (16:50)
--- NOTE | 2024-12-09 17:20 | PM.HP.1 ---
History of Present Illness History of Present Illness Date Patient Seen: 12/09/24 Chief complaint: Nauseous, Kidney Issues after Transplant Narrative: Patient was a 31-year-old male with a renal transplant history as well as hypertension and diabetes. He presents with 2 weeks of progressive weakness. He had a negative COVID test. He then developed urinary symptoms including hematuria and dysuria. He was started on Bactrim at the urgent care and now presents with ongoing weakness, and chills. ED course: He was YOHAN with a creatinine of 3.77 and evidence of urine tract infection. After 2 L of IV fluid creatinine improved to 3.0. S: He notes he has been ill for about a week. He states his baseline creatinine is closer to 1.7. He has been having malaise and became quite volume depleted at home. His girlfriend brought him to the hospital after he spent the last 3-4 days at home getting more ill. He was had some bladder fullness and dysuria, no hematuria. No fevers or rigors. He does take prednisone 5 mg daily as part of his immunosuppression regimen as well as mycophenolate and tacrolimus. [facility] Medical History Type 2 diabetes mellitus Hypercalcemia Anemia Kidney stones Kidney failure History of kidney disease History of hemodialysis Atypical nevi Hyperlipidemia Hypertension Gout Cystinuria Surgical History Anesthesia H/O nephrolithotomy with removal of calculi Renal transplant recipient (~03/10/20) Family History Father Diabetes mellitus Hyperlipidemia Mental health problem Mother Diabetes mellitus Hypertension Mental health problem Brother Diabetes mellitus Hypertension Hyperlipidemia Mental health problem Sister Diabetes mellitus Hyperlipidemia Mental health problem Sister Hypertension Mental health problem Social History Smoking Status: Never smoker Meds Home Medications and Allergies Home Medications ?Medication ?Instructions ?Recorded ?Confirmed ?Type magnesium supplement PO 07/01/22 07/22/24 History multivitamin 1 tab PO DAILY 07/01/22 07/22/24 History mycophenolate sodium 360 mg tab PO 07/01/22 07/22/24 History tablet,delayed release prednisone 5 mg tablet 5 mg PO DAILY 07/01/22 07/22/24 History tacrolimus 0.5 mg capsule, 0.5 mg PO 07/01/22 07/22/24 History immediate-release lancets 33 gauge #100 ea 09/18/23 07/22/24 Rx blood-glucose sensor (FreeStyle #2 ea 11/02/23 07/22/24 Rx Yuniel 3 Sensor device) flash glucose scanning reader #1 ea 11/02/23 07/22/24 Rx (FreeStyle Yuniel 2 [place]) tacrolimus 1 mg capsule, 1 mg PO BID 01/08/24 07/22/24 History immediate-release atorvastatin 10 mg tablet 10 mg PO DAILY #90 tabs 07/22/24 07/22/24 Rx empagliflozin 10 mg tablet 10 mg PO DAILY #90 tabs 07/22/24 07/22/24 Rx lisinopril 10 mg tablet 10 mg PO DAILY #90 tabs 07/22/24 07/22/24 Rx pioglitazone 15 mg tablet 15 mg PO DAILY #90 tabs 09/27/24 Rx metformin 500 mg tablet 1,000 mg (2 x 500 mg) PO BID #180 11/21/24 Rx tabs Allergies Allergy/AdvReac Type Severity Reaction Status Date / Time No Known Drug Allergies Allergy Verified 12/09/24 09:24 Review of Systems Review of Systems Narrative: All else reviewed and otherwise unremarkable except as noted in the history and physical. Exam Vital Signs (past 8 hours): - 12/09/24 09:24 12/09/24 09:30 12/09/24 09:32 Temperature 97.8 F Pulse Rate 86 81 Respiratory Rate 16 Blood Pressure 101/61 103/62 Pulse Oximetry 98 99 Oxygen Delivery Method Room Air 12/09/24 09:32 12/09/24 10:02 12/09/24 10:30 Temperature Pulse Rate 79 77 68 Respiratory Rate 20 19 Blood Pressure Pulse Oximetry 98 Oxygen Delivery Method 12/09/24 11:09 12/09/24 11:30 12/09/24 12:00 Temperature Pulse Rate 73 70 70 Respiratory Rate 21 16 Blood Pressure Pulse Oximetry 99 Oxygen Delivery Method 12/09/24 12:03 12/09/24 12:03 12/09/24 12:30 Temperature Pulse Rate 67 70 Respiratory Rate 12 22 Blood Pressure 103/58 L Pulse Oximetry 99 98 Oxygen Delivery Method 12/09/24 12:30 12/09/24 13:00 12/09/24 13:00 Temperature Pulse Rate 64 Respiratory Rate 12 Blood Pressure 103/62 104/58 L Pulse Oximetry 99 Oxygen Delivery Method 12/09/24 13:10 12/09/24 13:10 12/09/24 13:30 Temperature Pulse Rate 67 71 Respiratory Rate 17 21 Blood Pressure 112/65 Pulse Oximetry 100 98 Oxygen Delivery Method 12/09/24 13:30 12/09/24 13:45 12/09/24 13:45 Temperature Pulse Rate 68 Respiratory Rate Blood Pressure 111/57 L 94/55 L Pulse Oximetry 97 Oxygen Delivery Method 12/09/24 14:00 12/09/24 14:00 12/09/24 14:15 Temperature Pulse Rate 65 67 Respiratory Rate 22 Blood Pressure 93/54 L Pulse Oximetry 95 96 Oxygen Delivery Method 12/09/24 14:15 12/09/24 14:30 12/09/24 14:30 Temperature Pulse Rate 70 Respiratory Rate 24 Blood Pressure 103/56 L 107/60 Pulse Oximetry 98 Oxygen Delivery Method Oxygen Delivery Method Room Air Narrative Exam Narrative: NAD, alert and oriented, fluent speech, calm. Normocephalic skull, EOMI, anicteric sclera, symmetric pupils. Oropharynx unremarkable, no droop. Neck supple, midline trachea, no adenopathy. Lungs clear, normal rate and effort. Heart regular, no murmur gallop or rub. Abdomen is soft, non distended and non tender. Extremities are free of edema. Skin is free of rash or lesions. Joints are not swollen or deformed. Judgment appears to be normal. Many tattoos No real right lower quadrant tenderness at the site of his renal transplant. Objective ECG Impression: Intervals [place] Rate: 77 P: 31 MA: 202 QRS: 38 QRSD: 108 T: 41 QT: 408 QTc: 461 Interpretive Statements Normal sinus rhythm Imaging CT scan - abdomen: Radiologist's impression: Suspected ascending urinary tract infection, with bladder wall thickening, perivesicular fat stranding, right lower abdominal renal transplant edema and right-sided urothelial wall thickening. Pyelonephritis not excluded. Chest x-ray: Radiologist's impression: No acute cardiopulmonary abnormality is seen. Labs 12/09/24 09:45 12/09/24 14:29 Labs: Laboratory Results - last 24 hr 12/09/24 12/09/24 12/09/24 08:25 09:45 14:29 WBC 4.9 RBC 5.22 Hgb 15.6 Hct 44.8 MCV 85.7 MCH 29.9 MCHC 34.9 RDW 13.0 Plt Count 197 Neut % (Auto) 67.8 Lymph % (Auto) 20.2 L [place] % (Auto) 11.5 Eos % (Auto) 0.1 L Baso % (Auto) 0.4 Neut # (Auto) 3300 Lymph # (Auto) 1000 L [place] # (Auto) 600 Eos # (Auto) 0 Baso # (Auto) 0 PT 11.3 INR 1.0 APTT 31 Sodium 126 L 128 L Potassium 4.1 4.2 Chloride 93 L 96 L Carbon Dioxide 16 L 22 BUN 49 H 44 H Creatinine 3.77 H 3.08 H Estimated GFR 20 L 26 L BUN/Creatinine Ratio 13.0 14.3 Glucose 192 H 103 H Lactate 2.0 Calcium 9.3 8.8 Magnesium 2.6 H Total Bilirubin 0.9 AST 34 ALT 36 Alkaline Phosphatase 81 Total Creatine Kinase 101 Troponin I < 0.012 NT-Pro-B Natriuret Pep < 20 Total Protein 8.1 Albumin 4.7 Globulin 3.4 Albumin/Globulin Ratio 1.4 Lipase 69 Urine Color Yellow Urine Appearance Clear Urine pH 5.5 Ur Specific [place] <=1.005 Urine Protein 2+ H Urine Glucose (UA) 3+ H Urine Ketones Negative Urine Occult Blood 3+ H Urine Nitrate Negative Urine Bilirubin Negative Urine Urobilinogen 0.2 Ur Leukocyte Esterase Negative Urine RBC 10-30/hpf H Urine WBC 0-1/hpf Ur Squamous Epith Cells None seen Urine Bacteria None seen Ur Culture Indicated? Cult not indicated Vol Urine Centrifuged 10ml (spun) SARS-CoV-2 (PCR) Negative Influenza A (RT-PCR) Flu a negative Influenza B (RT-PCR) Flu b negative RSV (PCR) Negative Assessment & Plan Assessment & Plan narrative: 1. Pyelonephritis, active. 2. Volume depletion, active. 3. Acute kidney injury, active. 4. DM 2, active. 5. Renal transplant status, active. PLAN: -IV fluids and monitor renal function. -antibiotics and blood cultures. -slide scale insulin. -hold DARIELA inhibitor -stress dose steroids for the next 12 hours given his chronic prednisone dosing -have pharmacy renally dose his mycophenolate and tacrolimus. Anticipate 2 midnights in the hospital, supports inpatient status. Full code. Time-Based Coding :: 35 min spent with patient and on the chart (including review of chart, obtaining history, exam, reviewing outside data, placing orders, documenting exam and treatment plan, and counseling patient) on 12/09. Quality MIPS - Admit I confirm the patient?s Advance Care Plan is present, Code status is documented, Surrogate decision maker is in patient?s record [If Yes, STOP here]: Yes MIPS - Meds 'Current medications' to include all prescriptions, [id number] products, herbals, cannabis/cannabidiol products, and vitamin/mineral/dietary (nutritional) supplements. I have utilized all available resources to obtain, update, or review the patient?s current medications. [If Yes, STOP here]: Yes
[2024-12-09] MEDS: SODIUM CHLORIDE 0.9% 1,000 ML 100 ML IV (18:13)
[2024-12-09] MEDS: HYDROCORTISONE 100 MG/2 ML VIAL IV (18:47)
[2024-12-09] MEDS: ACETAMINOPHEN 325 MG TABLET 650 MG PO (21:17)
[2024-12-10] MEDS: OXYCODONE IR 5 MG TABLET PO ×2 (00:20→05:12)
[2024-12-10] MEDS: SODIUM CHLORIDE 0.9% 1,000 ML 100 ML IV ×4 (01:03→21:42)
[2024-12-10] MEDS: HYDROCORTISONE 100 MG/2 ML VIAL IV (01:40)
--- NOTE | 2024-12-10 01:54 | PC.NURSE ---
Patient reported that he took home medications prior to having meds reconciled. Dr. Webb notified.
[2024-12-10] MEDS: CALCIUM CARBONATE 500 MG TAB 1000 MG PO (02:10)
[2024-12-10 03:00] VITALS: BP 115/69; PULSE 49; RESP 18; TEMP 35.6; O2SAT 100
[2024-12-10] MEDS: ACETAMINOPHEN 325 MG TABLET 650 MG PO ×3 (05:11→17:47)
[2024-12-10 05:35] LABS: Blood Urea Nitrogen 41 mg/dL (9-20); Calcium 9.2 mg/dL (8.4-10.2); Carbon Dioxide 23 mmol/L (22-32); Chloride 100 mmol/L (98-107); Estimated Glomerular Filt Rate 36 mL/min (>60); Glucose 166 mg/dL (70-99); HEMOLYSIS < 15 (0-50); Potassium 4.5 mmol/L (3.4-5.1); Sodium 132 mmol/L (137-145)
[2024-12-10 05:39] LABS: Add Manual Diff / Slide Review NO; Hematocrit 39.5 % (41-53); Hemoglobin 13.9 g/dL (13.5-17.5); Lymphocytes Absolute Auto 600 /uL (1100-4500); Mean Corpuscular HGB Conc 35.3 % (30-36); Mean Corpuscular Hemoglobin 29.8 PG (26-34); Mean Corpuscular Volume 84.6 fL (80-100); Platelet Count 183 X10^3/uL (150-400)
[2024-12-10 08:00] VITALS: BP 114/59; PULSE 46; RESP 16; TEMP 35.8; O2SAT 98
--- NOTE | 2024-12-10 08:00 | PM.PN.1 ---
Subjective Subjective Interval history: S: He was improving but still has a fair amount of suprapubic pain and dysuria. No nausea. Creatinine has improved to 2.3. Exam Vital Signs (past 8 hours): - 12/10/24 03:00 Temperature 96.1 F L Pulse Rate 49 L Respiratory Rate 18 Blood Pressure 115/69 Pulse Oximetry 100 Oxygen Flow Rate 0 Oxygen Delivery Method Room Air Oxygen Flow Rate 0 Narrative Exam Narrative: NAD, alert and oriented. Fluent speech. Lungs are clear, normal rate and effort. Heart is regular, no murmur gallop or rub. Abdomen is soft, non distended. Extremities are free of edema. Objective Labs 12/10/24 04:39 12/10/24 04:39 Labs: Laboratory Results - last 24 hr 12/09/24 12/09/24 12/09/24 08: 09:45 14:29 WBC 4.9 RBC 5.22 Hgb 15.6 Hct 44.8 MCV 85.7 MCH 29.9 MCHC 34.9 RDW 13.0 Plt Count 197 Neut % (Auto) 67.8 Lymph % (Auto) 20.2 L [place] % (Auto) 11.5 Eos % (Auto) 0.1 L Baso % (Auto) 0.4 Neut # (Auto) 3300 Lymph # (Auto) 1000 L [place] # (Auto) 600 Eos # (Auto) 0 Baso # (Auto) 0 PT 11.3 INR 1.0 APTT 31 Sodium 126 L 128 L Potassium 4.1 4.2 Chloride 93 L 96 L Carbon Dioxide 16 L 22 BUN 49 H 44 H Creatinine 3.77 H 3.08 H Estimated GFR 20 L 26 L BUN/Creatinine Ratio 13.0 14.3 Glucose 192 H 103 H POC Whole Bld Glucose Lactate 2.0 Calcium 9.3 8.8 Magnesium 2.6 H Total Bilirubin 0.9 AST 34 ALT 36 Alkaline Phosphatase 81 Total Creatine Kinase 101 Troponin I < 0.012 NT-Pro-B Natriuret Pep < 20 Total Protein 8.1 Albumin 4.7 Globulin 3.4 Albumin/Globulin Ratio 1.4 Lipase 69 Urine Color Yellow Urine Appearance Clear Urine pH 5.5 Ur Specific [place] <=1.005 Urine Protein 2+ H Urine Glucose (UA) 3+ H Urine Ketones Negative Urine Occult Blood 3+ H Urine Nitrate Negative Urine Bilirubin Negative Urine Urobilinogen 0.2 Ur Leukocyte Esterase Negative Urine RBC 10-30/hpf H Urine WBC 0-1/hpf Ur Squamous Epith Cells None seen Urine Bacteria None seen Ur Culture Indicated? Cult not indicated Vol Urine Centrifuged 10ml (spun) SARS-CoV-2 (PCR) Negative Influenza A (RT-PCR) Flu a negative Influenza B (RT-PCR) Flu b negative RSV (PCR) Negative 12/09/24 12/10/24 12/10/24 21:20 04:39 07:30 WBC 3.8 L RBC 4.67 Hgb 13.9 Hct 39.5 L MCV 84.6 MCH 29.8 MCHC 35.3 RDW 12.6 Plt Count 183 Neut % (Auto) 76.1 H Lymph % (Auto) 16.4 L [place] % (Auto) 7.3 Eos % (Auto) 0.0 L Baso % (Auto) 0.2 Neut # (Auto) 2900 Lymph # (Auto) 600 L [place] # (Auto) 300 Eos # (Auto) 0 Baso # (Auto) 0 PT INR APTT Sodium 132 L Potassium 4.5 Chloride 100 Carbon Dioxide 23 BUN 41 H Creatinine 2.30 H Estimated GFR 36 L BUN/Creatinine Ratio 17.8 Glucose 166 H POC Whole Bld Glucose 125 H 126 H Lactate Calcium 9.2 Magnesium Total Bilirubin AST ALT Alkaline Phosphatase Total Creatine Kinase Troponin I NT-Pro-B Natriuret Pep Total Protein Albumin Globulin Albumin/Globulin Ratio Lipase Urine Color Urine Appearance Urine pH Ur Specific [place] Urine Protein Urine Glucose (UA) Urine Ketones Urine Occult Blood Urine Nitrate Urine Bilirubin Urine Urobilinogen Ur Leukocyte Esterase Urine RBC Urine WBC Ur Squamous Epith Cells Urine Bacteria Ur Culture Indicated? Vol Urine Centrifuged SARS-CoV-2 (PCR) Influenza A (RT-PCR) Influenza B (RT-PCR) RSV (PCR) [facility] Medical History Type 2 diabetes mellitus Hypercalcemia Anemia Kidney stones Kidney failure History of kidney disease History of hemodialysis Atypical nevi Hyperlipidemia Hypertension Gout Cystinuria Surgical History Anesthesia H/O nephrolithotomy with removal of calculi Renal transplant recipient (~03/10/20) Family History Father Diabetes mellitus Hyperlipidemia Mental health problem Mother Diabetes mellitus Hypertension Mental health problem Brother Diabetes mellitus Hypertension Hyperlipidemia Mental health problem Sister Diabetes mellitus Hyperlipidemia Mental health problem Sister Hypertension Mental health problem Social History Smoking Status: Never smoker alcohol intake: never Assessment & Plan Assessment & Plan narrative: 1. Pyelonephritis, active. 2. Volume depletion, active. 3. Acute kidney injury, active and improving. 4. DM 2, active. 5. Renal transplant status, active. PLAN: -Continue IV fluids and monitor renal function. -antibiotics and blood cultures. Ceftriaxone. Obtain urine culture from urgent care. -slide scale insulin. -hold DARIELA inhibitor -stress dose steroids for the next 12 hours given his chronic prednisone dosing, we will transition back to prednisone 5 daily. -Continue mycophenolate and tacrolimus. CRICKET: 12/11. Anticipate 2 midnights in the hospital, supports inpatient status. Full code. Time-Based Coding :: [TOTAL MINUTES] spent with patient and on the chart (including review of chart, obtaining history, exam, reviewing outside data, placing orders, documenting exam and treatment plan, and counseling patient) on [DATE]. Quality VTE Deep Vein Thrombosis/Pulmonary Embolism Present on Admission: No
[2024-12-10] MEDS: ASPIRIN EC 81 MG TABLET PO (08:22)
[2024-12-10] MEDS: HEPARIN 5,000 UNIT/ML VIAL 5000 UNIT SUBCUT (08:22)
[2024-12-10] MEDS: TACROLIMUS 0.5 MG CAPSULE 2 MG PO (08:22)
[2024-12-10 08:34] VITALS: O2SAT 98
[2024-12-10] MEDS: [UNRECOGNIZED DRUG - REMARK] 1000 EACH PO ×2 (11:39→20:40)
[2024-12-10] MEDS: MYCOPHENOLATE 180 MG 540 EACH PO ×2 (11:40→20:40)
[2024-12-10] MEDS: OXYCODONE IR 5 MG TABLET 10 MG PO ×3 (11:46→20:49)
[2024-12-10 12:00] VITALS: BP 129/62; PULSE 83; RESP 14; TEMP 35.7; O2SAT 95
[2024-12-10 19:00] VITALS: TEMP 36.1; O2SAT 99
[2024-12-10 20:12] VITALS: BP 126/74; PULSE 64; RESP 18; O2SAT 99
[2024-12-10] MEDS: ATORVASTATIN 20 MG TABLET 10 MG PO (20:38)
[2024-12-10] MEDS: TACROLIMUS 0.5 MG CAPSULE 1.5 MG PO (20:39)
[2024-12-10] MEDS: MORPHINE 4 MG/ML INJ IV (21:41)
[2024-12-11] MEDS: OXYCODONE IR 5 MG TABLET 10 MG PO ×2 (01:14→08:40)
[2024-12-11] MEDS: ACETAMINOPHEN 325 MG TABLET 650 MG PO ×2 (01:14→08:40)
[2024-12-11 04:00] VITALS: BP 109/73; PULSE 50; RESP 16; TEMP 36.4; O2SAT 100
[2024-12-11] MEDS: MORPHINE 4 MG/ML INJ IV (04:21)
[2024-12-11] MEDS: SODIUM CHLORIDE 0.9% 1,000 ML 100 ML IV ×2 (04:22→12:54)
--- NOTE | 2024-12-11 08:07 | CM.DANOTE ---
Patient is a 39 yo male who was admitted INPT Status on 12/09/24 for hematuria. Pt has [employer] for insurance and his PCP is Dr. Jean Marvin at [facility]. EMR was reviewed. Per MD, pt with hx of renal transplant and has had increased weakness, hematuria and admitted for pyelonephritis and YOHAN and giving fluids and pain management. If labs continue to improve then possible discharge home today. 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 Pt preference is home when stable and confirms that family can provide transport at d/c and currently he does not anticipate any further needs at d/c. Plan: SW to follow for pt's continued progress to confirm safe plan of home with family support when medically stable and any further identified discharge planning needs. HARESH Morrow Discharge Planning/Care Management CM Discharge Assessment Start: 12/09/24 17:07 Freq: Status: Active Protocol: Document 12/11/24 08:06 BF (Rec: 12/11/24 08:07 BF [id number]) Discharge Planning Assessment Assigned Discharge HARESH Whalen Payroll And Benefits Specialist DPOA/Assigned none Designee Name Advance Directives? No Advance Directives No on File History Provided By Patient,Medical Record Has Patient been No admitted in last 30 days? Prior Living House Arrangements Household Members spouse Type of Drives own vehicle transporation used prior to admit Independent with ADL Yes 's Is patient alert and Yes oriented? Caregiver for No Another Barriers to No Discharge Discharge Plan Home Transportation Likely family to transport at d/c Arrangement Referrals Initiated None needed Whiteboard Updated Yes in Patient Room with name and ext. # of Head Sugar Reprocess Operator Review Status In Process Please Provide Date 12/11/24 Initial DC Assessment Was Performed Next Review Type Continued Stay Review
[2024-12-11] MEDS: MYCOPHENOLATE 180 MG 540 EACH PO (08:39)
[2024-12-11] MEDS: [UNRECOGNIZED DRUG - REMARK] 1000 EACH PO (08:40)
[2024-12-11] MEDS: TACROLIMUS 0.5 MG CAPSULE 2 MG PO (08:43)
[2024-12-11] MEDS: ASPIRIN EC 81 MG TABLET PO (08:44)
[2024-12-11 08:50] LABS: Add Manual Diff / Slide Review NO; Hematocrit 39.6 % (41-53); Hemoglobin 13.7 g/dL (13.5-17.5); Lymphocytes Absolute Auto 1300 /uL (1100-4500); Mean Corpuscular HGB Conc 34.5 % (30-36); Mean Corpuscular Hemoglobin 29.8 PG (26-34); Mean Corpuscular Volume 86.4 fL (80-100); Platelet Count 190 X10^3/uL (150-400)
[2024-12-11 09:05] LABS: Blood Urea Nitrogen 32 mg/dL (9-20); Calcium 9.0 mg/dL (8.4-10.2); Carbon Dioxide 22 mmol/L (22-32); Chloride 105 mmol/L (98-107); Estimated Glomerular Filt Rate 52 mL/min (>60); Glucose 102 mg/dL (70-99); HEMOLYSIS < 15 (0-50); Potassium 4.6 mmol/L (3.4-5.1); Sodium 135 mmol/L (137-145)
--- NOTE | 2024-12-11 10:12 | DI.US.S_ITS ---
PROCEDURE: US RENAL COMPLETE INDICATIONS: check transplant kidney, rule out abscess TECHNIQUE: Real-time scanning was performed of the kidneys and bladder, with image documentation. COMPARISON: None. FINDINGS: Kidneys: Atrophied [place] kidneys, right measuring 9.5 cm, left measures 8.5 cm. Right lower quadrant renal transplant measuring 14.9 cm in length with cortex measuring 2.5 cm in thickness. No stones, cyst, or concerning masses. Mild hydronephrosis with proximal ureteral wall thickening measuring 2.3 mm. Bladder: Normal appearance of the bladder Miscellaneous: No free pelvic fluid. IMPRESSION: 1. No pelvic abscess identified. 2. Renal transplant within the right lower quadrant with mild hydronephrosis and ureteral thickening. 3. Atrophic appearing [place] kidneys. Dictated by: Doroteo Ewing M.D. on 12/11/2024 at 10:38 Approved by: Doroteo Ewing M.D. on 12/11/2024 at 10:40
[2024-12-11 12:00] VITALS: BP 123/76; PULSE 57; RESP 18; TEMP 36.6; O2SAT 99
--- NOTE | 2024-12-11 14:58 | P.DS_ITS ---
History of Present Illness History of Present Illness Chief complaint: Nauseous, Kidney Issues after Transplant Narrative: Patient was a 31-year-old male with a renal transplant history as well as hypertension and diabetes. He presents with 2 weeks of progressive weakness. He had a negative COVID test. He then developed urinary symptoms including hematuria and dysuria. He was started on Bactrim at the urgent care and now presents with ongoing weakness, and chills. ED course: He was YOHAN with a creatinine of 3.77 and evidence of urine tract infection. After 2 L of IV fluid creatinine improved to 3.0. S: He notes he has been ill for about a week. He states his baseline creatinine is closer to 1.7. He has been having malaise and became quite volume depleted at home. His girlfriend brought him to the hospital after he spent the last 3-4 days at home getting more ill. He was had some bladder fullness and dysuria, no hematuria. No fevers or rigors. He does take prednisone 5 mg daily as part of his immunosuppression regimen as well as mycophenolate and tacrolimus. Discharge Providers Provider Date of admission: 12/09/24 16:46 Discharge Date: 12/11/24 Primary care physician: Jean Marvin DO Consults: None. Discharge provider: Dwight wSain MD Summary Hospital Course Discharge Diagnosis: 1. Pyelonephritis vs prostatitis, improved. 2. Volume depletion, active. 3. Acute kidney injury, active and improving. 4. DM 2, active. 5. Renal transplant status, active. Hospital Course: He was admitted with evidence of volume depletion and acute kidney injury. He was treated with IV antibiotics for possible urinary tract infection which he had been treated for just before as an outpatient. He was on Bactrim. His urine was notable for white cells but negative for bacteria. There was no evidence of interstitial nephritis and his creatinine normalized over 2 days with IV fluids back to his baseline creatinine of about 1.7. Renal ultrasound of the day of discharge revealed a normal transplant kidney with mild ureteral dilation and ureter thickening. We talked about treating him for possible prostatitis Flomax to we can she was brought just some time this week. Copious hydration is also encouraged. He and his significant other appeared to be comfortable with the plan of discharge with close follow up on oral antibiotics and tamsulosin. Records from would be reviewed and a urine analysis on the 07 of December was hazy, negative for nitrite, 4+ protein, 0.2 urobilinogen, pH 6.5, 3+ blood, 5+ glucose. Urine culture was no growth as of December 08. There was 1+ leukocytes in his urine. Status at Discharge Cognitive/behavioral status at discharge: oriented Functional status at discharge: independent ambulation Overall status at discharge: patient is back to baseline Time Spent with Patient Time spent: Greater than 30 minutes Exam Vital Signs (past 8 hours): - 12/11/24 07:00 12/11/24 12:00 Temperature 98 F Pulse Rate 57 L Respiratory Rate 18 Blood Pressure 123/76 Pulse Oximetry 99 Oxygen Delivery Method Room Air Oxygen Delivery Method Room Air Oxygen Flow Rate 0 Narrative Exam Narrative: He was seen, he was doing well. He was ambulatory. He was in no distress, normal speech. His breathe in his normal rate and effort. His abdomen is soft. He was no leg edema. Objective Imaging Multiple studies:: Radiologist's impression: Renal ultrasound: 1. No pelvic abscess identified. 2. Renal transplant within the right lower quadrant with mild hydronephrosis and ureteral thickening. 3. Atrophic appearing [place] kidneys. Abdomen and pelvis CT: Suspected ascending urinary tract infection, with bladder wall thickening, perivesicular fat stranding, right lower abdominal renal transplant edema and right-sided urothelial wall thickening. Pyelonephritis not excluded. Labs 12/11/24 08:40 12/11/24 08:40 Labs: Laboratory Results - last 24 hr 12/10/24 12/10/24 12/11/24 16:45 20:28 07:43 WBC RBC Hgb Hct MCV MCH MCHC RDW Plt Count Neut % (Auto) Lymph % (Auto) [place] % (Auto) Eos % (Auto) Baso % (Auto) Neut # (Auto) Lymph # (Auto) [place] # (Auto) Eos # (Auto) Baso # (Auto) Sodium Potassium Chloride Carbon Dioxide BUN Creatinine Estimated GFR BUN/Creatinine Ratio Glucose POC Whole Bld Glucose 110 H 114 H 101 H Calcium 12/11/24 12/11/24 08:40 12:09 WBC 4.7 RBC 4.58 Hgb 13.7 Hct 39.6 L MCV 86.4 MCH 29.8 MCHC 34.5 RDW 12.9 Plt Count 190 Neut % (Auto) 58.4 Lymph % (Auto) 27.9 [place] % (Auto) 12.4 Eos % (Auto) 0.5 L Baso % (Auto) 0.8 Neut # (Auto) 2700 Lymph # (Auto) 1300 [place] # (Auto) 600 Eos # (Auto) 0 Baso # (Auto) 0 Sodium 135 L Potassium 4.6 Chloride 105 Carbon Dioxide 22 BUN 32 H Creatinine 1.71 H Estimated GFR 52 L BUN/Creatinine Ratio 18.7 Glucose 102 H POC Whole Bld Glucose 136 H Calcium 9.0 PFSH Medical History Type 2 diabetes mellitus Hypercalcemia Anemia Kidney stones Kidney failure History of kidney disease History of hemodialysis Atypical nevi Hyperlipidemia Hypertension Gout Cystinuria Surgical History Anesthesia H/O nephrolithotomy with removal of calculi Renal transplant recipient (~03/10/20) Family History Father Diabetes mellitus Hyperlipidemia Mental health problem Mother Diabetes mellitus Hypertension Mental health problem Brother Diabetes mellitus Hypertension Hyperlipidemia Mental health problem Sister Diabetes mellitus Hyperlipidemia Mental health problem Sister Hypertension Mental health problem Social History household members: spouse Smoking Status: Never smoker alcohol intake: never Discharge Assessment & Plan Assessment and Plan Assessment: 1. Pyelonephritis vs prostatitis, improved. 2. Volume depletion, active. 3. Acute kidney injury, active and improving. 4. DM 2, active. 5. Renal transplant status, active. Plan of Treatment: Discharge home on Cipro at 500 b.i.d., no dose correction required for GFR of 52. He will take this for 10 days which should get him to his nephrologists follow up. In addition he was given Flomax 0.4 mg daily, # 30. Discharge Plan Discharge Plan Patient Disposition: Home Provider Discharge Comment: Stable for discharge home with close follow up with Nephrology. Discharge orders & Medications Prescriptions: New ciprofloxacin HCl [Cipro] 500 mg tablet 500 mg PO BID Qty: 20 0RF tamsulosin 0.4 mg capsule 0.4 mg PO BEDTIME Qty: 30 0RF Continued (DME) Simbiosis Yuniel 3 Sensor Device See Rx Instructions .Route Qty: 2 6RF Rx Instructions: use to continuoulsy monitor blood sugars (DME) FreeStyle Yuniel 2 [place] Misc See Rx Instructions .Route Qty: 1 2RF Rx Instructions: use to continuoulsy monitor blood sugars pioglitazone 15 mg tablet 15 mg PO DAILY Qty: 90 2RF metformin 500 mg tablet 1,000 mg PO BID Qty: 180 1RF atorvastatin 10 mg tablet 10 mg PO DAILY Qty: 90 3RF tacrolimus 0.5 mg capsule 0.5 mg PO DAILY Patient Comments: TAKE 1 CAPSULE BY MOUTH AT BEDTIME TOTAL DOSE OF 2 MILLIGRAMS IN THE MORNING AND 1.5 MILLIGRAMS IN THE EVENING mycophenolate sodium 360 mg tablet,delayed release (DR/EC) 360 mg PO DAILY prednisone 5 mg tablet 5 mg PO DAILY multivitamin Tablet 1 tab PO DAILY magnesium supplement 1,000 mg PO DAILY Rx Instructions: 1,000 mg tacrolimus 1 mg capsule 1 mg PO BID Rx Instructions: 1 caps in AM, 1.5 cap in PM (DME) lancets 33 gauge misc See Rx Instructions .Route Qty: 100 0RF Rx Instructions: use to test blood sugars twice a day lisinopril 10 mg tablet 5 mg PO DAILY Rx Instructions: start 10 mg Follow up/Referrals: Jean Marivn, [Primary Care Provider, Family Practice] Diet/Activity/Treatments Diet: Carb-consistent/Diabetic Visit Report/Discharge Packet Instructions: DI for Kidney Infection, DI for Urinary Tract Infection (UTI), DI for Acute Prostatitis Stand Alone Forms: Patient Portal/API Discharge Data Primary Care Provider: Jean Marvin Quality VTE Deep Vein Thrombosis/Pulmonary Embolism Present on Admission: No
--- NOTE | 2024-12-12 07:59 | CM.DPC ---
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 Per RN, discharge instructions provided last night and pt was transported home via family POV and no concerns noted. Pt discharged home after SW shift and no further SW needs at this time. HARESH Morrow
== END 2024-12-11 15:16 | disposition home or self-care (01) | DRG 683 ==
LOC: ED 15:31 → AC 16:46
PROVIDERS: Admitting Provider Hospitalist; Emergency Provider Family Medicine; Family Provider Family Medicine; PCP Family Medicine; Referring Provider Family Medicine; Visit Provider Hospitalist
DX: N17.9 Acute kidney failure, unspecified (principal); T86.19 Other complication of kidney transplant; E11.9 Type 2 diabetes mellitus without complications; N10 Acute pyelonephritis; E86.9 Volume depletion, unspecified; N41.9 Inflammatory disease of prostate, unspecified; E78.5 Hyperlipidemia, unspecified; I10 Essential (primary) hypertension; Z79.84 Long term (current) use of oral hypoglycemic drugs; Z79.621 Long term (current) use of calcineurin inhibitor
CPT/HCPCS: 36415; 71045; 74176; 76770; 80048; 80053; 81001; 82550; 82962; 83605; 83690; 83735; 83880; 84484; 85025; 85610; 85730; 87040; 87637; 93005; 96361; 96365; 96375; 99284; J0696; J1171; J1644; J1720; J2270; J2405; J7507

== ENCOUNTER 2024-12-13 08:37 | Emergency (ER) | payer OTHER, SELFPAY ==
[2024-12-09 22:28] VITALS: BMI 33.7
[2024-12-13] VITALS (17 sets, daily range): BP systolic 121–165; BP diastolic 65–85; PULSE 53–81; RESP 16–18; TEMP 36.5; O2SAT 94–99; BMI 33.0
--- NOTE | 2024-12-13 09:04 | ED.MALEGU ---
HPI - Male Genitourinary General Chief complaint: Urogenital-Male Stated complaint: Urinary retention, 7 Days Time Seen by Provider: 12/13/24 08:39 Source: patient Mode of arrival: Ambulatory History of Present Illness HPI Narrative: 39-year-old gentleman history of renal transplant with a history of hypertension type 2 diabetes gout dyslipidemia admitted on 12/09/2024 for acute pyelonephritis and YOHAN discharged on 12/11 with Cipro and Flomax presents with continued hematuria, dysuria, and flank pain came in to be evaluated today. Patient denies fever, chills, bodyache, chest pain, cough, sore throat, nausea, vomiting, constipation. Other than what is stated 14 point review of system is negative Related Data Home Medications ?Medication ?Instructions ?Recorded ?Confirmed magnesium supplement 1,000 mg PO DAILY 07/01/22 12/09/24 multivitamin 1 tab PO DAILY 07/01/22 12/09/24 mycophenolate sodium 360 mg 360 mg PO DAILY 07/01/22 12/09/24 tablet,delayed release prednisone 5 mg tablet 5 mg PO DAILY 07/01/22 12/09/24 tacrolimus 0.5 mg capsule, 0.5 mg PO DAILY 07/01/22 12/09/24 immediate-release tacrolimus 1 mg capsule, 1 mg PO BID 01/08/24 12/09/24 immediate-release lisinopril 10 mg tablet 5 mg PO DAILY 12/09/24 12/09/24 Previous Rx's ?Medication ?Instructions ?Recorded lancets 33 gauge #100 ea 09/18/23 blood-glucose sensor (FreeStyle #2 ea 11/02/23 Yuniel 3 Sensor device) flash glucose scanning reader #1 ea 11/02/23 (FreeStyle Yuniel 2 [place]) atorvastatin 10 mg tablet 10 mg PO DAILY #90 tabs 07/22/24 pioglitazone 15 mg tablet 15 mg PO DAILY #90 tabs 09/27/24 metformin 500 mg tablet 1,000 mg (2 x 500 mg) PO BID #180 11/21/24 tabs ciprofloxacin HCl 500 mg tablet 500 mg PO BID #20 tabs 12/11/24 (Cipro) tamsulosin 0.4 mg capsule 0.4 mg PO BEDTIME #30 caps 12/11/24 Allergies Allergy/AdvReac Type Severity Reaction Status Date / Time No Known Drug Allergies Allergy Verified 12/13/24 08:45 Review of Systems Review of Systems ROS Unobtainable: All systems reviewed & are unremarkable except as noted in HPI and below Patient History Medical History Type 2 diabetes mellitus Hypercalcemia Anemia Kidney stones Kidney failure History of kidney disease History of hemodialysis Atypical nevi Hyperlipidemia Hypertension Gout Cystinuria Surgical History Anesthesia H/O nephrolithotomy with removal of calculi Renal transplant recipient (~03/10/20) Family History Father Diabetes mellitus Hyperlipidemia Mental health problem Mother Diabetes mellitus Hypertension Mental health problem Brother Diabetes mellitus Hypertension Hyperlipidemia Mental health problem Sister Diabetes mellitus Hyperlipidemia Mental health problem Sister Hypertension Mental health problem Social History household members: spouse Smoking Status: Never smoker alcohol intake: never Smoking Status: Never smoker Exam Narrative Exam Narrative: GENERAL: [84] year old patient appears stated age. Well-developed patient, in mild distress. HEAD: Atraumatic. Normocephalic. EYES: Pupils equal round and reactive. Extraocular motions intact. No scleral icterus. No injection or drainage. ENT: Nose without bleeding, purulent drainage. Throat without erythema, tonsillar hypertrophy or exudate. Airway patent. NECK: Trachea midline. Non tender CARDIOVASCULAR: Regular rate and rhythm without murmurs, gallops, or rubs. RESPIRATORY: Clear to auscultation. Breath sounds equal bilaterally. No wheezes, rales, or rhonchi. GASTROINTESTINAL: Abdomen soft, non-tender, nondistended. EXTREMITIES: No edema or joint tenderness. BACK: Nontender without deformity or crepitance. No flank tenderness. NEURO: AOx3. SKIN: No rash or erythema of visible areas Initial Vital Signs Initial Vital Signs: Vital Signs Temperature 97.7 F 12/13/24 08:44 Pulse Rate 72 12/13/24 08:44 Respiratory Rate 17 12/13/24 08:44 Blood Pressure 131/85 12/13/24 08:44 Pulse Oximetry 99 12/13/24 08:44 Oxygen Delivery Method Room Air 12/13/24 08:44 Course Orders Ordered: ED Orders 12/13/24 09:30 Complete Blood Count AUTO DIFF Stat Comprehensive Metabolic Panel Stat Lipase Stat Urine Culture Stat Urine Microscopic Stat 12/13/24 09:31 Lactate (Lactic Acid) Stat 12/13/24 10:14 CT abdomen pelvis w con Stat 12/13/24 11:33 Blood Culture Stat Lactated Ringer's (Lactated Ringers) 500 mls @ 1,000 mls/hr IV BOLUS ONE Stop: 12/13/24 14:27 Last Admin: 12/13/24 14:01 Dose: 1,000 mls/hr Documented By: Ondansetron HCl (Ondansetron 4 Mg/2 Ml Inj) 4 mg IV NOW PRN PRN Reason: Nausea And Vomiting Ondansetron HCl (Ondansetron 4 Mg Odt) 4 mg PO NOW PRN PRN Reason: Nausea And Vomiting Discontinued Medications Lactated Ringer's (Lactated Ringers) 1,000 mls @ 1,000 mls/hr IV BOLUS ONE Stop: 12/13/24 10:05 Last Infusion: 12/13/24 10:57 Dose: Infused Documented By: Admin: 12/13/24 09:55 Dose: 1,000 mls/hr Documented By: Lactated Ringer's (Lactated Ringers) 1,000 mls @ 1,000 mls/hr IV BOLUS ONE Stop: 12/13/24 11:27 Last Infusion: 12/13/24 12:14 Dose: Infused Documented By: Admin: 12/13/24 10:53 Dose: 1,000 mls/hr Documented By: Ceftriaxone Sodium 2,000 mg/ (Sodium Chloride) 100 mls @ 200 mls/hr IV NOW ONE Stop: 12/13/24 10:29 Last Infusion: 12/13/24 12:14 Dose: Infused Documented By: Admin: 12/13/24 10:53 Dose: 200 mls/hr Documented By: Piperacillin Sod/Tazobactam (Sod 4.5 gm/ Sodium Chloride) 100 mls @ 200 mls/hr IV STAT ONE Stop: 12/13/24 11:02 Last Infusion: 12/13/24 12:41 Dose: Infused Documented By: Admin: 12/13/24 11:58 Dose: 200 mls/hr Documented By: Vital Signs Vital signs: Vital Signs - 8 hr 12/13/24 08:44 12/13/24 09:13 12/13/24 09:13 Temperature 97.7 F Pulse Rate 72 78 Respiratory Rate 17 Blood Pressure 131/85 134/73 Pulse Oximetry 99 99 Oxygen Delivery Method Room Air 12/13/24 09:30 12/13/24 09:57 12/13/24 09:57 Temperature Pulse Rate 71 69 Respiratory Rate Blood Pressure 125/79 Pulse Oximetry 98 99 Oxygen Delivery Method Room Air 12/13/24 10:00 12/13/24 10:00 12/13/24 10:37 Temperature Pulse Rate 56 L 68 Respiratory Rate Blood Pressure 121/71 Pulse Oximetry 97 97 Oxygen Delivery Method 12/13/24 10:38 12/13/24 10:38 12/13/24 11:20 Temperature Pulse Rate 75 63 Respiratory Rate Blood Pressure 133/68 Pulse Oximetry 97 97 Oxygen Delivery Method Room Air 12/13/24 11:20 12/13/24 11:30 12/13/24 11:30 Temperature Pulse Rate 59 L Respiratory Rate Blood Pressure 131/76 141/83 H Pulse Oximetry 99 Oxygen Delivery Method 12/13/24 12:00 12/13/24 12:00 12/13/24 12:30 Temperature Pulse Rate 62 53 L Respiratory Rate Blood Pressure 149/83 H Pulse Oximetry 99 98 Oxygen Delivery Method Room Air 12/13/24 12:30 12/13/24 13:00 12/13/24 13:00 Temperature Pulse Rate 57 L Respiratory Rate Blood Pressure 147/71 H 124/72 Pulse Oximetry 96 Oxygen Delivery Method Room Air MDM - Male Genitourinary Lab Data 12/13/24 09:30 12/13/24 09:30 Labs: Lab Results 12/13/24 12/13/24 Range/Units 09:30 09:31 WBC 5.4 (4.5-11.0) X10^3/uL RBC 4.88 (4.5-5.9) X10^6/uL Hgb 14.6 (13.5-17.5) g/dL Hct 42.4 (41-53) % MCV 86.8 (80-100) fL MCH 29.9 (26-34) PG MCHC 34.5 (30-36) % RDW 12.6 (11.6-14.8) % Plt Count 125 L (150-400) X10^3/uL Neut % (Auto) 78.2 H (50-75) % Lymph % (Auto) 13.9 L (25-40) % [place] % (Auto) 6.8 (3-14) % Eos % (Auto) 0.5 L (2-4) % Baso % (Auto) 0.6 (0-2) % Neut # (Auto) 4200 (8208-1062) /uL Lymph # (Auto) 700 L (2116-8069) /uL [place] # (Auto) 400 (0-900) /uL Eos # (Auto) 0 (0-450) /uL Baso # (Auto) 0 (0-100) /uL Sodium 131 L (137-145) mmol/L Potassium 4.6 (3.4-5.1) mmol/L Chloride 100 (98-107) mmol/L Carbon Dioxide 20 L (22-32) mmol/L BUN 26 H (9-20) mg/dL Creatinine 2.40 H (0.66-1.25) mg/dL Estimated GFR 35 L (>60) mL/min BUN/Creatinine Ratio 10.8 (6-22) Glucose 151 H (70-99) mg/dL Lactate 1.2 (0.7-2.1) mmol/L Calcium 10.0 (8.4-10.2) mg/dL Total Bilirubin 0.9 (0.2-1.3) mg/dL AST 30 (17-59) IU/L ALT 29 (<50) IU/L Alkaline Phosphatase 86 (38-126) U/L Total Protein 8.0 (6.3-8.2) g/dL Albumin 4.4 (3.5-5.0) g/dL Globulin 3.6 (1.7-4.1) g/dL Albumin/Globulin Ratio 1.2 (1.0-2.8) Lipase 46 (23-300) U/L Urine RBC >100/hpf H (0-5/HPF) Urine WBC 10-30/hpf H (0-5/HPF) Ur Squamous Epith Cells 0-1 /hpf (0-5/HPF) Urine Bacteria None seen (None) Ur Culture Indicated? Specimen cultured Vol Urine Centrifuged 10ml (spun) Imaging Data CT scan - abdomen/pelvis: Radiologist's Impression: [address] [address] [address] Scan Report Signed Patient: Tyler Lofton MR#: [id number] : 1985 Acct:[id number] Age/Sex: 39 / M Date of Service: 12/13/24 Loc: ED Accession Number: [id number] Procedure: CT abdomen pelvis w con Ordering Provider: Aidan Shah D.O. PROCEDURE: CT ABDOMEN PELVIS W CON INDICATIONS: abd groin pain TECHNIQUE: After the administration of intravenous contrast, axial sections acquired from the lung bases to the pubic symphysis. Coronal and sagittal reformats were performed. For radiation dose reduction, the following was used: automated exposure control, adjustment of mA and/or kV according to patient size. COMPARISON: [facility], CT, CT KIDNEY URETER BLADDER (KUB), 12/09/2024, 11:01. FINDINGS: Image quality: Diagnostic. Lower Chest: No significant findings. ABDOMEN: Liver: No solid mass. Moderate hepatic steatosis. Gallbladder: No radiopaque gallstones or wall thickening. Biliary ducts: No biliary dilation. Pancreas: No ductal dilation. Spleen: Size is within normal limits. Adrenal Glands: No adrenal nodules. Kidneys and Ureters: Atrophic appearing bilateral kidneys. No hydronephrosis. No solid appearing renal lesion. Transplant kidney is noted in right lower quadrant . Mild to moderate hydronephrosis and hydroureter involving right transplant kidney extending to the level of UVJ is seen without obstructing stones. Stomach and Bowel: There is no bowel obstruction. No abnormal bowel wall thickening or mesenteric fat stranding. No abscess collection. No evidence of acute appendicitis or diverticulitis. Peritoneum: No abnormal intraperitoneal fluid. No free air. Ventral Wall: No significant ventral hernia. Abdominal Nodes: No retroperitoneal or mesenteric adenopathy by size criteria. Vessels: Aorta and inferior vena cava are normal in size. PELVIS: Pelvic Organs: Unremarkable. Bladder: Mild diffuse bladder wall thickening and edema is seen concerning for cystitis. No discrete bladder wall mass or calcified bladder stones. Pelvic Nodes: No enlarged lymph nodes. Miscellaneous: No inguinal hernias are seen. Bones: No aggressive osseous abnormality. IMPRESSION: 1. Finding is concerning for cystitis and pyelonephritis involving transplant kidney. No obstructing stones. [id number] hydronephrosis and hydroureter likely represent reflux pathology. 2. No hydronephrosis is seen in bilateral atrophic [place] kidneys. 3. No bowel obstruction or abnormal bowel wall thickening. No abscess collection. No free fluid or free air. No evidence of acute appendicitis or diverticulitis. Dictated by: Juan White M.D. on 12/13/2024 at 10:26 Approved by: Juan White M.D. on 12/13/2024 at 10:30 [facility] Narrative Medical decision making narrative: All lab work, vital signs, nurse triage note, medication list, previous ER visits, and all imaging studies reviewed. CT abdomen and pelvis findings concerning for cystitis and pyelonephritis involving transplant kidney. No obstructing stone. [id number] hydronephrosis. and hydroureter likely representing reflex pathology no hydronephrosis is seen in bilateral atrophic [place] kidneys. No bowel obstruction or abnormal bowel wall thickening. No free fluid or free air. No evidence of acute appendicitis or diverticulitis. Cultures lactic acid drawn patient given 1 L bolus LR x2. Rocephin 2 g IV. And Zosyn 4.5 g x 1 IV. Case d/w his primary transplant MD and then transplant certified alcohol and drug counselor and case d/w hospitalist who has accepted pt at [facility]. Discharge Plan Departure Patient Disposition: [facility] Clinical Impression: YOHAN (acute kidney injury), Infection, kidney Prescriptions: No Action (DME) FreeStyle Yuniel 3 Sensor Device See Rx Instructions .Route Qty: 2 6RF Rx Instructions: use to continuoulsy monitor blood sugars (DME) FreeStyle Yuniel 2 [place] Misc See Rx Instructions .Route Qty: 1 2RF Rx Instructions: use to continuoulsy monitor blood sugars pioglitazone 15 mg tablet 15 mg PO DAILY Qty: 90 2RF metformin 500 mg tablet 1,000 mg PO BID Qty: 180 1RF atorvastatin 10 mg tablet 10 mg PO DAILY Qty: 90 3RF tacrolimus 0.5 mg capsule 0.5 mg PO DAILY Patient Comments: TAKE 1 CAPSULE BY MOUTH AT BEDTIME TOTAL DOSE OF 2 MILLIGRAMS IN THE MORNING AND 1.5 MILLIGRAMS IN THE EVENING mycophenolate sodium 360 mg tablet,delayed release (DR/EC) 360 mg PO DAILY prednisone 5 mg tablet 5 mg PO DAILY multivitamin Tablet 1 tab PO DAILY magnesium supplement 1,000 mg PO DAILY Rx Instructions: 1,000 mg tacrolimus 1 mg capsule 1 mg PO BID Rx Instructions: 1 caps in AM, 1.5 cap in PM (DME) lancets 33 gauge misc See Rx Instructions .Route Qty: 100 0RF Rx Instructions: use to test blood sugars twice a day lisinopril 10 mg tablet 5 mg PO DAILY Rx Instructions: start 10 mg ciprofloxacin HCl [Cipro] 500 mg tablet 500 mg PO BID Qty: 20 0RF tamsulosin 0.4 mg capsule 0.4 mg PO BEDTIME Qty: 30 0RF Referrals: Jean Marvin DO [Primary Care Provider, Family Practice]
--- NOTE | 2024-12-13 09:42 | PC.NURSE ---
Pt ambulatory to [facility]. Pt states that he is having prostate pain. MD notified. Reports feeling weak and tired all the time. A/O X4. Moves all extremities.
[2024-12-13 09:44] LABS: Add Manual Diff / Slide Review NO; Hematocrit 42.4 % (41-53); Hemoglobin 14.6 g/dL (13.5-17.5); Lymphocytes Absolute Auto 700 /uL (1100-4500); Mean Corpuscular HGB Conc 34.5 % (30-36); Mean Corpuscular Hemoglobin 29.9 PG (26-34); Mean Corpuscular Volume 86.8 fL (80-100); Platelet Count 125 X10^3/uL (150-400)
[2024-12-13] MEDS: LACTATED RINGERS 1,000 ML 1000 ML IV ×2 (09:55→10:53)
[2024-12-13 09:58] LABS: Alanine Aminotransferase 29 IU/L (<50); Albumin 4.4 g/dL (3.5-5.0); Albumin Globulin Ratio 1.2 (1.0-2.8); Alkaline Phosphatase 86 U/L (38-126); Blood Urea Nitrogen 26 mg/dL (9-20); Calcium 10.0 mg/dL (8.4-10.2); Carbon Dioxide 20 mmol/L (22-32); Chloride 100 mmol/L (98-107); Estimated Glomerular Filt Rate 35 mL/min (>60); Globulin 3.6 g/dL (1.7-4.1); Glucose 151 mg/dL (70-99); HEMOLYSIS 48 (0-50); Lipase 46 U/L (23-300); Potassium 4.6 mmol/L (3.4-5.1); Sodium 131 mmol/L (137-145); Total Protein 8.0 g/dL (6.3-8.2)
--- NOTE | 2024-12-13 10:14 | DI.CT.S_ITS ---
PROCEDURE: CT ABDOMEN PELVIS W CON INDICATIONS: abd groin pain TECHNIQUE: After the administration of intravenous contrast, axial sections acquired from the lung bases to the pubic symphysis. Coronal and sagittal reformats were performed. For radiation dose reduction, the following was used: automated exposure control, adjustment of mA and/or kV according to patient size. COMPARISON: [facility], CT, CT KIDNEY URETER BLADDER (KUB), 12/09/2024, 11:01. FINDINGS: Image quality: Diagnostic. Lower Chest: No significant findings. ABDOMEN: Liver: No solid mass. Moderate hepatic steatosis. Gallbladder: No radiopaque gallstones or wall thickening. Biliary ducts: No biliary dilation. Pancreas: No ductal dilation. Spleen: Size is within normal limits. Adrenal Glands: No adrenal nodules. Kidneys and Ureters: Atrophic appearing bilateral kidneys. No hydronephrosis. No solid appearing renal lesion. Transplant kidney is noted in right lower quadrant . Mild to moderate hydronephrosis and hydroureter involving right transplant kidney extending to the level of UVJ is seen without obstructing stones. Stomach and Bowel: There is no bowel obstruction. No abnormal bowel wall thickening or mesenteric fat stranding. No abscess collection. No evidence of acute appendicitis or diverticulitis. Peritoneum: No abnormal intraperitoneal fluid. No free air. Ventral Wall: No significant ventral hernia. Abdominal Nodes: No retroperitoneal or mesenteric adenopathy by size criteria. Vessels: Aorta and inferior vena cava are normal in size. PELVIS: Pelvic Organs: Unremarkable. Bladder: Mild diffuse bladder wall thickening and edema is seen concerning for cystitis. No discrete bladder wall mass or calcified bladder stones. Pelvic Nodes: No enlarged lymph nodes. Miscellaneous: No inguinal hernias are seen. Bones: No aggressive osseous abnormality. IMPRESSION: 1. Finding is concerning for cystitis and pyelonephritis involving transplant kidney. No obstructing stones. [id number] hydronephrosis and hydroureter likely represent reflux pathology. 2. No hydronephrosis is seen in bilateral atrophic [place] kidneys. 3. No bowel obstruction or abnormal bowel wall thickening. No abscess collection. No free fluid or free air. No evidence of acute appendicitis or diverticulitis. Dictated by: Juan White M.D. on 12/13/2024 at 10:26 Approved by: Juan White M.D. on 12/13/2024 at 10:30
[2024-12-13 10:18] LABS: Culture Indicated Urine Specimen Cultured
[2024-12-13] MEDS: cefTRIAXone 2,000 MG in SODIUM CHLORIDE 0.9% 100 ML 200 MG IV (10:53)
[2024-12-13 11:24] LABS: Lactate (Lactic Acid) 1.2 mmol/L (0.7-2.1)
[2024-12-13] MEDS: PIPERACILLIN/TAZO 4.5 GM in SODIUM CHLORIDE 0.9% 100 ML IV (11:58)
[2024-12-13] MEDS: LACTATED RINGERS 500 ML 1000 ML IV (14:01)
--- NOTE | 2024-12-13 14:37 | PC.NURSE ---
Pt states that his prostate is painful when sitting up or standing to urinate. Dr Shah notified. Verbal order received for 1 mg IV dilaudid. Order read back.
== END 2024-12-13 15:56 | disposition short-term general hospital (02) ==
PROVIDERS: Emergency Provider Family Medicine; Family Provider Family Medicine; PCP Family Medicine
DX: N10 Acute pyelonephritis (principal); N17.9 Acute kidney failure, unspecified; Z94.0 Kidney transplant status
CPT/HCPCS: 36415; 51798; 74177; 80053; 81015; 83605; 83690; 85025; 87040; 87086; 96361; 96365; 96368; 99284; J0696; J1171; J2543; Q9967

== ENCOUNTER → 2025-03-24 07:53 | Outpatient (CLI) | payer MEDICARE, OTHER, SELFPAY ==
[2024-12-09 22:28] VITALS: BMI 33.7
[2025-03-24 08:38] LABS: Add Manual Diff / Slide Review NO; Hematocrit 43.7 % (41-53); Hemoglobin 15.0 g/dL (13.5-17.5); Lymphocytes Absolute Auto 1700 /uL (1100-4500); Mean Corpuscular HGB Conc 34.3 % (30-36); Mean Corpuscular Hemoglobin 30.1 PG (26-34); Mean Corpuscular Volume 87.7 fL (80-100); Platelet Count 240 X10^3/uL (150-400)
[2025-03-24 08:56] LABS: Alanine Aminotransferase 45 IU/L (<50); Albumin 4.7 g/dL (3.5-5.0); Albumin Globulin Ratio 1.7 (1.0-2.8); Alkaline Phosphatase 88 U/L (38-126); Blood Urea Nitrogen 26 mg/dL (9-20); Calcium 10.6 mg/dL (8.4-10.2); Carbon Dioxide 23 mmol/L (22-32); Chloride 102 mmol/L (98-107); Cholesterol 203 mg/dL (140-199); Estimated Glomerular Filt Rate > 60 mL/min (>60); Globulin 2.7 g/dL (1.7-4.1); Glucose 144 mg/dL (70-99); HDL Cholesterol 43 mg/dL (40-60); Potassium 4.7 mmol/L (3.4-5.1); Sodium 137 mmol/L (137-145); Total Protein 7.4 g/dL (6.3-8.2); Uric Acid 8.0 mg/dL (3.5-8.5)
[2025-03-24 09:07] LABS: HEMOLYSIS < 15 (0-50)
[2025-03-24 09:10] LABS: Triglycerides 643 mg/dL (35-150)
== END ==
PROVIDERS: PCP Family Medicine; Referring Provider Internal Medicine Nephrology; Visit Provider Internal Medicine Nephrology
DX: E11.9 Type 2 diabetes mellitus without complications (principal); I10 Essential (primary) hypertension; E78.5 Hyperlipidemia, unspecified; E83.52 Hypercalcemia; M10.9 Gout, unspecified; R30.0 Dysuria
CPT/HCPCS: 36415; 80053; 80061; 82310; 83970; 84550; 85025; 85651; 87086